=== PATIENT | female | born 1950 | race Caucasian/White ===

== ENCOUNTER → 2023-07-03 12:41 | Outpatient (REF) | payer OTHER, SELFPAY ==
[2023-07-03 16:29] LABS: % Basophils 0.6 % (0-2); % Eosinophils 5.4 % (0-6); % Immature Granulocytes 0.2 % (0-0.5); % Lymphocytes 26.7 % (20.5-51.1); % Neutrophils 57.1 % (42.2-75.2); Absolute Eosinophils 0.3 10^3/uL (0-0.7); Absolute Lymphocytes 1.4 10^3/uL (1.2-3.4); Absolute Monocytes 0.5 10^3/uL (0.1-0.6); Hematocrit 28.9 % (37.0-47.0); Hemoglobin 9.3 g/dL (12.0-16.0); Mean Corp Hgb Conc. 32.2 g/dL (33.0-37.0); Mean Corpuscular Hgb 29.9 pg (27.0-31.0); Mean Corpuscular Volume 92.9 fL (81.0-99.0); Mean Platelet Volume 12.3 fL (7.4-10.4); Nucleated Red Blood Cells % 0 %; Platelet Count 147 10^3/uL (130-400); Red Blood Cell Count 3.11 10^6/uL (4.20-5.40); Red Cell Dist. Width 14.3 % (11.5-14.5); White Blood Cell Count 5.2 10^3/uL (4.8-10.8)
[2023-07-03 16:39] LABS: ALT (SGPT) 56 U/L (0-35); AST (SGOT) 80 U/L (14-36); Albumin 2.9 g/dl (3.5-5.0); Alkaline Phosphatase 156 U/L (38-126); Blood Urea Nitrogen 10 mg/dl (7-17); Calcium 7.9 mg/dl (8.4-10.2); Carbon Dioxide 28 mmol/L (22-30); Chloride 100 mmol/L (98-107); Glomerular Filtration Rate 40.4; Glucose 73 mg/dl (70-99); Potassium 2.8 mmol/L (3.5-5.1); Sodium 138 mmol/L (135-145); Total Bilirubin 0.5 mg/dl (0.2-1.3); Total Protein 5.6 g/dl (6.3-8.2)
== END ==
LOC: OLABP 12:41
PROVIDERS: FAMILY PHYSICIAN Family Medicine
DX: E11.9 Type 2 diabetes mellitus without complications (principal); T84.54XD Infection and inflammatory reaction due to internal left knee prosthesis, subsequent encounter; M79.661 Pain in right lower leg
CPT/HCPCS: 80053; 85025

== ENCOUNTER 2023-10-01 16:21 | Inpatient (IN) | payer OTHER, SELFPAY ==
[2023-10-01] VITALS (17 sets, daily range): BP systolic 75–102; BP diastolic 36–74; BMI 30.1; BMI 30.6
[2023-10-01] MEDS: NSS 500 IV (13:12)
[2023-10-01 13:23] LABS: % Basophils 0.4 % (0-2); % Eosinophils 5.7 % (0-6); % Immature Granulocytes 0.5 % (0-0.5); % Lymphocytes 13.4 % (20.5-51.1); % Monocytes 6.1 % (1.7-9.3); % Neutrophils 73.9 % (42.2-75.2); Absolute Eosinophils 0.6 10^3/uL (0-0.7); Absolute Immature Granulocytes 0.1 10^3/uL (0-0.05); Absolute Lymphocytes 1.5 10^3/uL (1.2-3.4); Absolute Monocytes 0.7 10^3/uL (0.1-0.6); Hematocrit 30.1 % (37.0-47.0); Hemoglobin 10.1 g/dL (12.0-16.0); Mean Corp Hgb Conc. 33.6 g/dL (33.0-37.0); Mean Corpuscular Volume 83.4 fL (81.0-99.0); Mean Platelet Volume 11.9 fL (7.4-10.4); Nucleated Red Blood Cells % 0 %; Platelet Count 185 10^3/uL (130-400); Red Blood Cell Count 3.61 10^6/uL (4.20-5.40); Red Cell Dist. Width 16.3 % (11.5-14.5); White Blood Cell Count 10.8 10^3/uL (4.8-10.8)
--- NOTE | 2023-10-01 13:34 | ED.GENMED ---
History of Present Illness
General
Chief Complaint: Blood Pressure Problem
Time Seen by Provider: 10/01/23 12:39
Travel History
Have you had any contact with someone who has COVID-19?: No
Do you have any symptoms of coronavirus? Fever > 100 degrees, chills, cough, shortness of breath, sore throat, loss of taste or smell, muscle aches, or headache?: No
History of Present Illness
History of Present Illness:
73-year-old female with history of COPD, congestive heart failure, hyperlipidemia, and stage III chronic kidney disease presents to the emergency department for evaluation of a near syncopal event that occurred while on the toilet today. She was
too weak to get up and her had to support her until EMS arrived. On arrival she was noted to be mildly tachycardic and hypotensive but is alert to her baseline and denies complaints. She did take her scheduled midodrine today. She denies
any chest pain or shortness of breath, denies any fevers or chills. Recently admitted to the hospital for MRSA bacteremia due to UTI, completed a course of vancomycin while inpatient and has been taking levofloxacin since that time
Past History
Past History
ED Past Medical History: CHF, COPD, GERD, HTN, Hypercholesterolemia, NIDDM, Hypothyroidism, Psychiatric (Anxiety, ), Other (dvt PE, Cellulitis, Migraines, PNA, Ovarian cyst Uterine cyst, Cellulitis, Sarcoidosis, Polymyalgia rheumatics. ) and Other
(The patient has a benign cyst and the uterus); Negative Asthma
ED Past Surgical History: None, Cholecystectomy, Orthopedic (Lumbar laminectomy 02/08/2018, Right ankle surgery, Right patella surgery, ) and Other (Cataracts, )
Social History
Tobacco: Former smoker
Alcohol: None
Personal:
Living: with family
Employment: Employed
Family History
Family History: Hypertension
Review of Systems
Review of Systems
Allergies reviewed?: Yes
All Other Systems: ROS reviewed and negative except as documented in HPI and ROS
Phy Exam
Physical Exam
Physical Exam:
GEN: Chronically ill-appearing, generally pale, no immediate distress
HEENT: Oral mucosa moist, no scleral icterus
Cardiac: Regular rate and rhythm, no murmurs
Lung: No respiratory distress, no tachypnea, lungs clear to auscultation bilaterally
MSK: Status post right knee replacement, incision site is clean dry with no dehiscence. Diffuse ecchymosis to the entire right lower extremity, likely on the basis of recent surgery. Dorsalis pedis pulses are 1+ bilaterally
Skin: Good color, no pallor or jaundice, no rashes
Neuro: AO x3, moves all extremities freely
Psych: Calm, cooperative
Course
Orders/Labs/Results
Orders:
Orders
10/01/23 12:15
Electrocardiogram (*1) Urgent
Reason for Study: Shortness of Breath
10/01/23 12:16
EKG- Treatment ONCE
10/01/23 13:10
0.9% Sodium Chloride 500 ml [Nss] 500 ml IV BOLUS
10/01/23 13:13
Complete Blood Count/With Diff Urgent
Comprehensive Metabolic Panel Urgent
10/01/23 13:45
Bladder Scan- Treatment ONCE
Comment: PVR
10/01/23 15:36
0.9% Sodium Chloride 1000 ml [Nss] 1,000 ml IV BOLUS
10/01/23 16:03
Admit/Transfer Patient As Directed
Co-Sign Provider:
Level of Care: Inpatient admission
Assign to:: Telemetry
Physician / Group: jimena alves
Diagnosis: dehydration
Reason for Telemetry: Other
Other Reason for Telemetry: hypotension
Date to Stop Telemetry: 10/03/23
Time to Stop Telemetry: 11:00
Reason for Hospitalization: dehydration
Expected length of stay greater than two midnights?: Yes
ELOS- Estimated Length of Stay in days: 3
I certify the patient meets the requirements for IP care: Yes
0.9% Sodium Chloride 1000 ml [Nss] 1,000 ml IV BOLUS
10/01/23 16:04
Code Status As Directed
Resuscitation Status: Full Code
Midodrine [ProAmatine] 5 mg PO NOW STA
10/01/23 16:25
Urinalysis Reflex To Culture Urgent
Date Specimen was Collected: 10/01/23
Time Specimen was Collected: 16:19
Urine Microscopic Reflex Cult Urgent
10/01/23 16:30
Blood Culture Q30M
ABILIO Source: Blood/Venous
Specimen Description:
10/01/23 17:00
Blood Culture Q30M
ABILIO Source: Blood/Venous
Specimen Description:
10/03/23 11:00
DC Protocol for Telemetry ONCE
Abnormal Lab Results
10/01/23
13:13
RBC 3.61 L 10^6/uL
(4.20-5.40)
Hgb 10.1 L g/dL
(12.0-16.0)
Hct 30.1 L %
(37.0-47.0)
RDW 16.3 H %
(11.5-14.5)
MPV 11.9 H fL
(7.4-10.4)
Abs Immat Gran (auto) 0.1 H 10^3/uL
(0-0.05)
Absolute Neuts (auto) 8.0 H 10^3/uL
(1.4-6.5)
Absolute Monos (auto) 0.7 H 10^3/uL
(0.1-0.6)
Lymphocytes % 13.4 L %
(20.5-51.1)
Sodium 131 L mmol/L
(135-145)
Carbon Dioxide 15 L mmol/L
(22-30)
BUN 18 H mg/dl
(7-17)
Creatinine 2.1 H mg/dL
(0.6-1.0)
AST 68 H U/L
(14-36)
Alkaline Phosphatase 160 H U/L
(38-126)
Total Protein 4.7 L g/dl
(6.3-8.2)
Albumin 2.3 L g/dl
(3.5-5.0)
10/01/23 13:13
10/01/23 13:13
Vital Signs
Initial and Last Documented VS:
Initial Vital Signs
Temp Pulse Resp BP Pulse Ox
97.9 F 103 20 81/54 98
10/01/23 12:19 10/01/23 12:19 10/01/23 12:19 10/01/23 12:19 10/01/23 12:19
Last Documented Vital Signs
Temp Pulse Resp BP Pulse Ox
97.9 F 91 22 88/56 98
10/01/23 12:19 10/01/23 14:45 10/01/23 14:45 10/01/23 16:21 10/01/23 14:45
MDM/Problems Addressed
MDM/Problems Addressed:
Patient is hypotensive on arrival. She did endorse taking her midodrine today. Could be related to third spacing in the setting of hypoalbuminemia versus poor p.o. intake. She is afebrile with no leukocytosis and has a negative urinalysis, no
indication for antibiotics at this point. Initially responded well to IV fluids however became persistently hypotensive, midodrine administered. Will admit to the hospitalist service due to acute kidney injury superimposed on chronic kidney disease
*Critical Care Note
Total Time (30-74mins, 75-104mins- exclusive of procedures): Not Applicable
ED Attending Note
-
Portions of this chart may have been created with voice recognition software.� Occasional wrong word or��sound alike� substitutions may have occurred due to the inherent limitations of voice recognition software.
Discharge Plan
Departure
Patient Disposition: Admit
Date of Disposition: 10/01/23
Time of Disposition: 15:22
Admit to: Med/Surg
Presentation/result/management discussed w/ accepting MD/DO: Hospitalist
Discharge Problem:
Acute kidney injury superimposed on CKD
Interventions
Interventions:
*Risk Screen - Suicide Last Done: 10/01/23 12:19
*General Assessment Last Done: 10/01/23 12:19
*Neglect/Abuse Screening Last Done: 10/01/23 12:19
ED- Cardiac Assessment Last Done: 10/01/23 12:47
ED- Neurological Assessment Last Done: 10/01/23 12:47
ED- Pulmonary Assessment Last Done: 10/01/23 12:47
[2023-10-01 13:36] LABS: ALT (SGPT) 16 U/L (0-35); AST (SGOT) 68 U/L (14-36); Albumin 2.3 g/dl (3.5-5.0); Alkaline Phosphatase 160 U/L (38-126); Blood Urea Nitrogen 18 mg/dl (7-17); Calcium 8.9 mg/dl (8.4-10.2); Carbon Dioxide 15 mmol/L (22-30); Chloride 102 mmol/L (98-107); Estimated Creatinine Clearance 21 ml/min; Glucose 75 mg/dl (70-99); Potassium 4.1 mmol/L (3.5-5.1); Sodium 131 mmol/L (135-145); Total Bilirubin 1.2 mg/dl (0.2-1.3); Total Protein 4.7 g/dl (6.3-8.2); eGFR 24.73
--- NOTE | 2023-10-01 15:29 | HPS.HSE ---
Addendum entered and electronically signed by Gurinder Francois MD 10/01/23 16:17:
73 y/o F who p/w CC near syncope.
80/49, 91, 22, 97.9 �F, 98% RA
NAD, awake and alert
RRR, normal S1/S2
CTAB
+BS, soft, NT, ND
CN2-12 intact
Proximal posterior left leg and distal posterior left thigh with mild erythema
WBC 10.8, Hb 10.1, plt 185
Na 131, HCO3- 15, BUN 18, Cr 2.1
BARRY, hypotension:
-1L NS given by ER, will give another 1L NS
-maintenance fluids
-cont midodrine
-trend Cr
Prior MRSA bacteremia:
-The patient does have a history of chronic hypertension but she also has a history of recent MRSA bacteremia. Her left lower extremity has an area that is mildly erythematous and borderline cellulitic. At this time I will place her on IV
vancomycin and check blood cultures.
Original Note:
Family Physician
-
Family Physician: Fercho Franco
Chief Complaint
-
near syncope
History of Present Illness
73-year-old female with history of COPD, congestive heart failure, hyperlipidemia, and stage III chronic kidney disease presents to the emergency department for evaluation of a near syncopal event that occurred while on the toilet today.� She was
too weak to get up and her had to support her until EMS arrived.� This morning she was noted hypotensive at home. Her gave her midodrine with no improvement in her blood pressure. She always has systolic BP in 100s but today it was
in the 80s. today she was sitting on the toilet, she felt dizzy, lightheaded and felt like she is going to fall. As per , stated poor appetite. noticed left lower extremities swollen than the right and also noted some redness
behind her left calf. Also complained of right lower extremities bruising throughout. Patient denied any pain in her lower extremities patient denied any headache. Stated lightheaded and dizziness for past 1 week. Denied chest pain or short of
breath. Denies abdominal pain, nausea, vomiting, diarrhea. Denied dysuria hematuria.
on arrival she was noted to be mildly tachycardic and hypotensive
Recently admitted to the hospital for MRSA bacteremia due to UTI, completed a course of vancomycin while inpatient and has been taking levofloxacin since that time.
Patient received fluids in ER. Admitting for further management
Medical History
Past Medical History
Past Medical History: Reports Other
Additional Past Medical History:
heumatoid arthritis, on chronic prednisone, spinal stenosis, CKD stage III, COPD, PMR, hypothyroidism, generalized weakness
Past Surgical History: Reports Other (right knee surgery)
Social History
Tobacco: Non-smoker
Alcohol: None
Drug: None
Personal:
Living: With Family
Family History
Family History: Not pertinent
Allergies / Home Medications
Allergies reflects when Allergies were last updated in [facility].
Home Medications with original date entered in [facility]
Allergy/Medication List:
Allergies
Allergy/AdvReac Type Severity Reaction Status Date / Time
ampicillin [From Unasyn] Allergy AIN Verified 08/17/23 16:12
methotrexate Allergy no energy Verified 07/24/23 17:30
and lost
weight
pepper (genus Capsicum) Allergy LIKE FOOD Verified 08/19/23 21:23
POISONING/VOMITS/DIARRHEA
sulbactam [From Unasyn] Allergy AIN Verified 08/17/23 16:12
Home Medications
potassium chloride 20 mEq tablet,extended release(part/cryst) (Klor-Con M) 20 meq PO BID Supplement 11/01/15
levothyroxine 75 mcg tablet 75 mcg PO DAILY AT 0700 Thyroid 12/05/18
famotidine 20 mg tablet 20 mg PO BID Gastrointestinal Issue 10/25/20
ascorbic acid (vitamin C) 500 mg tablet (Vitamin C) 500 mg PO DAILY Supplement 09/04/21
cholecalciferol (vitamin D3) 50 mcg (2,000 unit) tablet 2,000 units PO DAILY Supplement 09/04/21
adalimumab 40 mg/0.4 mL subcutaneous pen kit (Humira(CF) Pen) 40 mg SC FR Rheumatoid arthritis 06/01/23
gabapentin 600 mg tablet 600 mg PO TID Neurological Condition 06/01/23
vitamin B complex 1 tab PO DAILY Supplement 06/01/23
oxycodone 5 mg tablet 5 mg PO Q4HPRN PRN moderate/severe pain #20 tabs 07/30/23
acetaminophen 325 mg tablet 650 mg PO Q4H PRN mild pain/fever 08/17/23
neomycin-bacitracn Zn-polymyx 3.5 mg-400 unit-5,000 unit/gram top oint (Triple Antibiotic) 1 applic topical DAILY Skin Issues 08/17/23
levofloxacin 750 mg tablet 750 mg PO Q48H Infected joint 08/18/23
midodrine 5 mg tablet 5 mg PO TID@0800,1300,1800 #90 tabs 08/28/23
mirtazapine 15 mg tablet 15 mg PO HS #30 tabs 08/28/23
prednisone 5 mg tablet 5 mg PO DAILY #30 tabs 08/28/23
Review of Systems
-
Constitutional: Reports No Symptoms
EENT: Reports No Symptoms
Respiratory: Reports No Symptoms
Cardiac: Reports No Symptoms
Abdomen/GI: Reports No Symptoms
: Reports No Symptoms
Musculoskeletal: Reports No Symptoms
Skin: Reports Other (left le red, swollen, right LE with bruising)
Neurological: Reports Dizzy and Weakness
Endocrine: Reports No Symptoms
Hematologic/Lymphatic: Reports No Symptoms
Psych: Reports No Symptoms
Physical Exam
Vital Signs
Vital Signs
Temp Pulse Resp BP Pulse Ox
97.9 F 91 22 80/49 98
10/01/23 12:19 10/01/23 14:45 10/01/23 14:45 10/01/23 14:32 10/01/23 14:45
Physical Exam
General: Well Developed, Well Nourished and No Apparent Distress
HEENT: NormoCephalic, Moist mucous membranes and Atraumatic
Respiratory: Clear
Cardiac: S1/S2 and Regular Rhythm; No Murmur or Rub
GI: Soft, Non Tender, Non Distended and Normal Bowel Sounds; No Organomegaly
Rectal: Deferred by Provider
Musculoskeletal: No Clubbing, No Cyanosis and Other (right LE edema, left LE with bruising)
Skin: No Rash
Neuro: AO x 3 and Nonfocal/grossly intact
Psych: Calm
Laboratory Results
-
10/01/23 13:13
10/01/23 13:13
Laboratory Results
Total Bilirubin 1.2 mg/dl (0.2-1.3) 10/01/23 13:13
AST 68 U/L (14-36) H 10/01/23 13:13
ALT 16 U/L (0-35) 10/01/23 13:13
Alkaline Phosphatase 160 U/L (38-126) H 10/01/23 13:13
Data Reviewed
-
Lab Data: Labs Reviewed by me
Impression/Plan
-
# Hyponatremia/acute kidney injury on CKD 3a metabolic acidosis likely dehydration
-Sodium 131, creatinine 2.1,co2 15
-normal saline continued
-nephrology consulted
#hypotension likely dehydration
-normal saline continued
-monitor BP/HR
-midodrine continued
#hxt of MRS/UTI/bacteremia
#immunocompromised from Humira/chronic steroids
- TTE and SILVERIO clear
- Patient have L4-L5 fixation device placed hardware in place.� In May also have undergone right patellar ORIF with prosthesis removal and multiple I&D.
- completed Vancomycin course during hospitalization
-at present on levaquin
# Anemia of chronic disease
-Hemoglobin stable at 10.1
-No active bleeding
-Continue to monitor
# History of small right knee effusion
#History of right patellar hardware infection s/p removal
#History of rheumatoid arthritis
- Not painful/tender on exam
#Chronic transaminitis
- ALT/AST minimally elevated, which is chronic in nature
- Earlier in the month at abdominal ultrasound which was normal
#Generalized weakness
- Patient had mechanical fall 2 months back
- Currently requiring assistance/walker to ambulate
- PT/OT
#Right shoulder rotator cuff arthropathy
#PMR on chronic steroids
#Hypothyroidism
-Levothyroxine continued
# GERD
-PPI continued
# History of lower GI bleed from stercoral colitis
#DVT ppx: SC heparin
#Code: Full
[2023-10-01] MEDS: NSS 1000 IV ×2 (16:01→19:59)
[2023-10-01] MEDS: ProAmatine 5 MG PO (16:21)
[2023-10-01 16:42] LABS: Urine Albumin Trace (Neg - Trace); Urine Bilirubin 1+ (Negative); Urine Character Clear (Clear); Urine Color Yellow; Urine Glucose Negative (Negative); Urine Ketone 1+ (Negative); Urine Leukocyte Trace (Negative); Urine Nitrite Negative (Negative); Urine Occult Blood Negative (Negative); Urine Urobilinogen Negative (Neg - 1+)
[2023-10-01 17:11] LABS: Urine Bacteria Few (Negative); Urine Red Blood Cell 0-2 /HPF (0-2); Urine White Cell 0-2 /HPF (0-5)
--- NOTE | 2023-10-01 20:10 | PHA.VAN.IN ---
Assessment
- Assessment
Renal Function: Appears elevated from baseline (08/28/23 BASELINE SCR: 1.0)
Concomitant Antimicrobials: LEVAQUIN
- Previous Dosing Experience
Previous Regimen: 750MG IV Q72H
Date of Regimen: 08/25/23
Provided Trough of: UNKNOWN
Provided AUC of: UNKNOWN
Patient's SCR is: Elevated compared to previous dosing experience (08/25/23 SCR = 1.1)
Patient's weight is: Decreased compared to previous dosing experience (08/25/23 WT = 72.8 KG)
Plan
- Plan
Initial / Loading Dose: 1500MG
Maintenance Regimen: DOSING BY RANDOM LEVEL
Monitoring: RANDOM VANCOMYCIN LEVEL 10/02/23 AM
Pharmacokinetics Vancomycin I
- -
Patient Age: 73
Patient Sex: Female
Vancomycin Day #: 1
Indication: Bacteremia
Requesting Provider: FRANCISCO
Height / Weight:
Height 5 ft
Actual Weight 70 kg
Pertinent Past Medical History: RECENT MRSA BACTEREMIA
- Vital Signs / Lab Results
Temp Pulse Resp BP Pulse Ox
97.4 F 95 16 80/55 99
10/01/23 19:55 10/01/23 19:55 10/01/23 19:55 10/01/23 19:55 10/01/23 19:55
Lab Results - Hematology
10/01/23
13:13
WBC 10.8
Lab Results - Chemistry
10/01/23
13:13
BUN 18 H
Creatinine 2.1 H
Estimated Creat Clear 21
Albumin 2.3 L
Lab Results - Urine
10/01/23
16:25
Urine Nitrite (Reflex) Negative
Leukocyte Esterase Rfl Trace A
Urine WBC (Reflex) 0-2
Urine Bacteria (Reflex) Few A
[2023-10-01] MEDS: VANCOCIN 300 MG IV (20:16)
[2023-10-01] MEDS: VANCOCIN 300 ML IV (20:16)
[2023-10-01] MEDS: HEPARIN 5000 UNITS SC (21:37)
[2023-10-01] MEDS: PEPCID 20 MG PO (21:38)
[2023-10-01] MEDS: NEURONTIN 300 MG PO (21:38)
[2023-10-01] MEDS: LEVAQUIN 750 MG PO (21:38)
[2023-10-02] VITALS (7 sets, daily range): BP systolic 83–116; BP diastolic 51–64; PULSE 95; O2SAT 100; BMI 30.6
--- NOTE | 2023-10-02 02:53 | PTCARENOTE ---
Pt admitted from ED this shift. Pt alert and oriented. Denies pain. BP 88/52, MAILING MANAGER aware. MIVF started and vancomycin administered upon arrival to unit. Pt placed on telemetry box #4. Pt oriented to room. Call quarles within reach.
[2023-10-02] MEDS: NSS 1000 IV ×3 (05:15→22:10)
[2023-10-02] MEDS: SYNTHROID 75 MCG PO (06:14)
[2023-10-02 07:18] LABS: Hematocrit 24.4 % (37.0-47.0); Hemoglobin 8.2 g/dL (12.0-16.0); Mean Corp Hgb Conc. 33.6 g/dL (33.0-37.0); Mean Corpuscular Hgb 27.9 pg (27.0-31.0); Red Blood Cell Count 2.94 10^6/uL (4.20-5.40); Red Cell Dist. Width 16.2 % (11.5-14.5); White Blood Cell Count 5.9 10^3/uL (4.8-10.8)
[2023-10-02 07:46] LABS: ALT (SGPT) 10 U/L (0-35); AST (SGOT) 38 U/L (14-36); Albumin 1.6 g/dl (3.5-5.0); Alkaline Phosphatase 108 U/L (38-126); Blood Urea Nitrogen 15 mg/dl (7-17); Calcium 7.9 mg/dl (8.4-10.2); Carbon Dioxide 16 mmol/L (22-30); Chloride 108 mmol/L (98-107); Direct Bilirubin 0.6 mg/dl (0.0-0.4); Estimated Creatinine Clearance 28 ml/min; Glucose 67 mg/dl (70-99); Potassium 3.5 mmol/L (3.5-5.1); Sodium 133 mmol/L (135-145); Total Bilirubin 0.8 mg/dl (0.2-1.3); Total Protein 3.7 g/dl (6.3-8.2); eGFR 34.27
[2023-10-02 07:49] LABS: Mean Platelet Volume 12.1 fL (7.4-10.4); Platelet Count 124 10^3/uL (130-400)
--- NOTE | 2023-10-02 08:22 | PHA.VAN.FU ---
Vancomycin Assessment / Plan
- Assessment
Renal Function: SCR Decreasing (2.1->1.6)
WBC's are: WNL
In the past 24 hrs, patient has been: Afebrile
Concomitant Antimicrobials: levofloxacin
- Assessment - Therapeutic Drug Monitoring
Random Level: 17 ( ~10.5 hours after 1500 mg dose )
- Dosing Plan
Continue: dose by random level as SCR still elevated
Dosing by Level: Re-dose today (500 mg x 1 dose to be given later this afternoon)
Dosing Comments: giving a small extra dose to ensure that level does not fall too much given
hx of recent MRSA bacteremia
- Monitoring Plan
Random Level: random level AM 10/03/23
- Follow Up
Pharmacy will continue to follow.
Vancomycin Follow UP
- -
Patient Age: 73
Patient Sex: Female
Vancomycin Day #: 2
Indication: Bacteremia
Requesting Provider: FRANCISCO
Height / Weight:
Height 5 ft
Actual Weight 71.169 kg
Pertinent Past Medical History: RECENT MRSA BACTEREMIA
- Vital Signs / Lab Results
Temp Pulse Resp BP Pulse Ox
97.6 F 87 12 83/52 98
10/02/23 04:04 10/02/23 04:04 10/02/23 04:04 10/02/23 04:04 10/02/23 04:04
Lab Results - Hematology
10/01/23 10/02/23
13:13 06:46
WBC 10.8 5.9
Lab Results - Chemistry
10/01/23 10/02/23
13:13 06:46
BUN 18 H 15
Creatinine 2.1 H 1.6 H
Estimated Creat Clear 21 28
Albumin 2.3 L 1.6 L
Lab Results - Urine
10/01/23
16:25
Urine Nitrite (Reflex) Negative
Leukocyte Esterase Rfl Trace A
Therapeutic Drug Monitoring
Random Vancomycin 17.0 ug/ml 10/02/23 06:46
[2023-10-02] MEDS: ProAmatine 5 MG PO (08:30)
--- NOTE | 2023-10-02 08:43 | W.PN.HOSP.TC ---
Today's Communication/Plan
-
see bold
Assessment / Plan
Assessment / Plan
Gen: NAD, Awake and alert, appears older than stated age
Eyes: EOMI, PERRLA, no scleral icterus.
Neck: supple.
CV: tachy, reg rhythm, +S1/S2, no m/r/g.
Resp: CTAB, no rales, wheezes, or rhonchi.
Abd: +BS, soft, NT, ND
Skin: No rashes.
Neuro: CN 2-12 intact, non-focal.
Psych: Normal mood and affect.
BARRY, hypotension:
-s/p 2L NS on admission
-cont NS @ 125cc/hr
-increase midodrine to 10mg PO TID
-Cr improving
-Now with nonanion gap metabolic acidosis, follow HCO3-
-hyponatremia, improving
Prior MRSA bacteremia:
-immunocompromised from Humira/chronic steroids
-The patient does have a history of chronic hypertension but she also has a history of recent MRSA bacteremia.� Her left lower extremity has an area that is mildly erythematous and borderline cellulitic.�
-cont IV vancomycin and follow blood cultures.
Dysphagia:
-speech eval
Other problems:
Recent UTI: cont Levaquin
Anemia of chronic disease: Trend Hb (drop is dilutional)
Chronic transaminitis: ALT/AST minimally elevated, chronic. Earlier in the month abdominal ultrasound was normal
RA
PMR
Hypothyroidism: cont Levoxyl
GERD: cont PPI
h/o lower GI bleed from stercoral colitis
FULL/heparin
Anticipated Discharge: 24 - 48 hours
Subjective/Interval History
-
Date of Service: October 02, 2023
Objective Data
-
Labs:
Laboratory Results
10/02/23
06:46
WBC 5.9
Hgb 8.2 L
Hct 24.4 L
Plt Count 124 L D
Sodium 133 L
Potassium 3.5
Chloride 108 H
Carbon Dioxide 16 L
BUN 15
Creatinine 1.6 H
Glucose 67 L
Calcium 7.9 L
Total Bilirubin 0.8
AST 38 H
ALT 10
Alkaline Phosphatase 108
Vital Signs:
Vital Signs
Temp Pulse Resp BP Pulse Ox
97.6 F 87 12 83/52 98
10/02/23 04:04 10/02/23 04:04 10/02/23 04:04 10/02/23 04:04 10/02/23 04:04
I&O
10/01/23 10/02/23 10/03/23
06:59 06:59 06:59
Intake Total 970 / 970
Balance 970 / 970
[2023-10-02] MEDS: CYMBALTA DELAYED RELEASE 30 MG PO (09:06)
[2023-10-02] MEDS: NEURONTIN 300 MG PO ×2 (09:06→20:11)
[2023-10-02] MEDS: HEPARIN 5000 UNITS SC ×2 (09:08→20:11)
[2023-10-02] MEDS: DESENEX/MITRAZOL/ZEASORB 1 APPLIC TOPICAL ×2 (09:11→20:12)
--- NOTE | 2023-10-02 12:17 | PTOTSP ---
SPEECH THERAPY SWALLOW EVALUATION:
Clinical signs of oropharyngeal dysphagia, likely chronic in patient with multiple pre-disposing dysphagia risk factors (CHF, COPD, GERD) though unclear etiology. Patient and RN reporting difficulty with solids at this time. Recommend
Videofluoroscopic Swallowing Study to further assess swallow physiology. Recommend IDDSI Level 4 Puree diet and thin liquids until VSE. Recommend medications crushed in puree (which patient verbally refused); medications whole in puree would be the
next-safest option. Aspiration precautions including: upright positioning, small single sips/bites; alternate textures. Speech therapy to follow, assess diet tolerance and modify as appropriate, provide education regarding aspiration
risks/precautions and recommendations, and provide further recommendations following VSE.
RECOMMEND:
1) Videofluoroscopic Swallowing Study
2) IDDSI Level 4 Puree diet and thin liquids
3) Recommend medications crushed in puree (which patient verbally refused); medications whole in puree would be the next-safest option
4) Aspiration precautions including: upright positioning, small single sips/bites; alternate textures.
5) Speech therapy to follow, assess diet tolerance and modify as appropriate, provide education regarding aspiration risks/precautions and recommendations, and provide further recommendations following VSE
[2023-10-02] MEDS: VANCOCIN HCL 500 MG 100 IV (13:22)
[2023-10-02] MEDS: ProAmatine 10 MG PO ×2 (13:22→17:15)
--- NOTE | 2023-10-02 13:29 | CM ---
Patient seen at bedside. Patient stated that she lives with her and friend in a 2 story home with 1st floor set up. Patient has a hospital bed and walker at home. patient stated she was current with [facility] and would like to restart with them
when discharged. Patient stated that she is being followed by [facility] nurse also. CM will continue to follow for discharge planning needs.
Plan; home with MANFR[facility] Tolentino and family supports.
[2023-10-03 03:45] VITALS: BP 107/59
[2023-10-03] MEDS: SYNTHROID 75 MCG PO (06:10)
[2023-10-03] MEDS: NSS 1000 IV (06:10)
[2023-10-03 06:27] LABS: Hematocrit 22.7 % (37.0-47.0); Hemoglobin 7.9 g/dL (12.0-16.0); Mean Corp Hgb Conc. 34.8 g/dL (33.0-37.0); Mean Corpuscular Hgb 28.7 pg (27.0-31.0); Mean Corpuscular Volume 82.5 fL (81.0-99.0); Mean Platelet Volume 12.2 fL (7.4-10.4); Platelet Count 119 10^3/uL (130-400); Red Blood Cell Count 2.75 10^6/uL (4.20-5.40); Red Cell Dist. Width 16.4 % (11.5-14.5); White Blood Cell Count 5.5 10^3/uL (4.8-10.8)
[2023-10-03 06:30] LABS: Vancomycin Random 16.5 ug/ml
[2023-10-03 06:43] LABS: Blood Urea Nitrogen 13 mg/dl (7-17); Calcium 7.3 mg/dl (8.4-10.2); Carbon Dioxide 14 mmol/L (22-30); Chloride 111 mmol/L (98-107); Estimated Creatinine Clearance 38 ml/min; Glucose 61 mg/dl (70-99); Potassium 3.2 mmol/L (3.5-5.1); Sodium 134 mmol/L (135-145); eGFR 48.39
--- NOTE | 2023-10-03 07:38 | W.PN.HOSP.TC ---
Today's Communication/Plan
-
see bold
Assessment / Plan
Assessment / Plan
Gen: NAD, Awake and alert, appears older than stated age
Eyes: EOMI, PERRLA, no scleral icterus.
Neck: supple.
CV: RRR, +S1/S2, no m/r/g.
Resp: CTAB anteriorly, no rales, wheezes, or rhonchi.
Abd: remains +BS, soft, NT, ND
Skin: Minimal erythema without induration on the distal posterior left thigh and proximal posterior left leg
Neuro: CN 2-12 intact, non-focal.
Psych: Normal mood and affect.
BARRY, hypotension:
-s/p 2L NS on admission, then NS @ 125cc/hr
-midodrine increased to 10mg PO TID
-Cr improving
-start NaHCO3 infusion for nonanion gap metabolic acidosis
-hyponatremia, improving
Prior MRSA bacteremia:
-immunocompromised from Humira/chronic steroids
-The patient does have a history of chronic hypotension but she also has a history of recent MRSA bacteremia.� Her left lower extremity has an area that is mildly erythematous and borderline cellulitic.�
-cont IV vancomycin for now. If BCxs NG at 48 hours stop Vanco.
Dysphagia:
-IDDSI 4 for now, VSE tomorrow
Other problems:
Recent UTI: cont Levaquin
Anemia of chronic disease: Trend Hb (drop is dilutional)
Chronic transaminitis: AST minimally elevated, chronic. Earlier in the month abdominal ultrasound was normal
RA
PMR
Hypothyroidism: cont Levoxyl
GERD: cont PPI
h/o lower GI bleed from stercoral colitis
FULL/heparin
Anticipated Discharge: 24 - 48 hours
Subjective/Interval History
-
Date of Service: October 03, 2023
Denies chest pain or shortness of breath. No new complaints.
Objective Data
-
Labs:
Laboratory Results
10/03/23
05:37
WBC 5.5
Hgb 7.9 L
Hct 22.7 L
Plt Count 119 L
Sodium 134 L
Potassium 3.2 L
Chloride 111 H
Carbon Dioxide 14 L*
BUN 13
Creatinine 1.2 H
Glucose 61 L
Calcium 7.3 L
Vital Signs:
Vital Signs
Temp Pulse Resp BP Pulse Ox
97.1 F 80 16 107/59 98
10/03/23 03:45 10/03/23 03:45 10/03/23 03:45 10/03/23 03:45 10/03/23 03:45
I&O
10/02/23 10/03/23 10/04/23
06:59 06:59 06:59
Intake Total 970 / 970 3580 / 3580
Balance 970 / 970 3580 / 3580
[2023-10-03 07:50] VITALS: BP 126/61
--- NOTE | 2023-10-03 08:29 | PHA.VAN.FU ---
Vancomycin Assessment / Plan
- Assessment
Renal Function: SCR Decreasing (2.1->1.6->1.2)
WBC's are: WNL
In the past 24 hrs, patient has been: Afebrile
Concomitant Antimicrobials: levaquin
- Assessment - Therapeutic Drug Monitoring
Random Level: 16.5 (after 1500 mg (10/01 20:16 and 500 mg 10/02 13:22)
- Dosing Plan
Continue: dose by level for now
Dosing by Level: Re-dose today (500 mg x 1 dose)
provider plan is to stop vanc if blood cultures are neg X48h
- Monitoring Plan
Random Level: ordered for 0600 10/04
- Follow Up
Pharmacy will continue to follow.
Vancomycin Follow UP
- -
Patient Age: 73
Patient Sex: Female
Vancomycin Day #: 3
Indication: Bacteremia
Requesting Provider: FRANCISCO
Height / Weight:
Height 5 ft
Actual Weight 71.169 kg
Pertinent Past Medical History: RECENT MRSA BACTEREMIA
- Vital Signs / Lab Results
Temp Pulse Resp BP Pulse Ox
97.2 F 85 16 126/61 100
10/03/23 07:50 10/03/23 07:50 10/03/23 07:50 10/03/23 07:50 10/03/23 07:50
Lab Results - Hematology
10/01/23 10/02/23 10/03/23
13:13 06:46 05:37
WBC 10.8 5.9 5.5
Lab Results - Chemistry
10/01/23 10/02/23 10/03/23
13:13 06:46 05:37
BUN 18 H 15 13
Creatinine 2.1 H 1.6 H 1.2 H
Estimated Creat Clear 21 28 38
Albumin 2.3 L 1.6 L
Microbiology Results
10/01/23 20:45 Blood Culture - Preliminary
Blood/Venous No Growth in 24 hours- Final report to follow
10/01/23 19:46 Blood Culture - Preliminary
Blood/Venous No Growth in 24 hours- Final report to follow
Therapeutic Drug Monitoring
Random Vancomycin 16.5 ug/ml 10/03/23 05:37
[2023-10-03] MEDS: ProAmatine 10 MG PO ×3 (09:17→18:04)
[2023-10-03] MEDS: HEPARIN 5000 UNITS SC ×2 (09:18→21:14)
[2023-10-03] MEDS: CYMBALTA DELAYED RELEASE 30 MG PO (09:18)
[2023-10-03] MEDS: NEURONTIN 300 MG PO ×2 (09:18→21:14)
[2023-10-03] MEDS: SODIUM BICARBONATE 1075 MEQ IV ×2 (09:22)
[2023-10-03] MEDS: DESENEX/MITRAZOL/ZEASORB 1 APPLIC TOPICAL ×2 (09:23→21:13)
[2023-10-03 11:41] VITALS: BP 101/54
[2023-10-03] MEDS: VANCOCIN HCL 500 MG 100 IV (12:28)
[2023-10-03 15:40] VITALS: BP 96/55
[2023-10-03 19:35] VITALS: BP 107/69
[2023-10-03] MEDS: LEVAQUIN 750 MG PO (21:14)
[2023-10-03] MEDS: PEPCID 20 MG PO (21:14)
[2023-10-03 23:30] VITALS: BP 109/57
[2023-10-04 03:16] VITALS: BP 102/40
[2023-10-04 05:48] LABS: Hemoglobin 7.9 g/dL (12.0-16.0); Mean Corp Hgb Conc. 34.3 g/dL (33.0-37.0); Mean Corpuscular Hgb 28.3 pg (27.0-31.0); Mean Corpuscular Volume 82.4 fL (81.0-99.0); Mean Platelet Volume 12.3 fL (7.4-10.4); Platelet Count 105 10^3/uL (130-400); Red Blood Cell Count 2.79 10^6/uL (4.20-5.40); Red Cell Dist. Width 15.9 % (11.5-14.5)
[2023-10-04 06:00] VITALS: BMI 32.9
[2023-10-04 06:02] LABS: Vancomycin Random 17.9 ug/ml
[2023-10-04 06:10] LABS: Blood Urea Nitrogen 10 mg/dl (7-17); Carbon Dioxide 17 mmol/L (22-30); Chloride 111 mmol/L (98-107); Estimated Creatinine Clearance 38 ml/min; Glucose 64 mg/dl (70-99); Potassium 2.8 mmol/L (3.5-5.1); Sodium 133 mmol/L (135-145); eGFR 48.39
[2023-10-04] MEDS: SYNTHROID 75 MCG PO (06:37)
[2023-10-04 07:00] VITALS: BP 98/57
--- NOTE | 2023-10-04 07:36 | W.PN.HOSP.TC ---
Today's Communication/Plan
-
see bold
Assessment / Plan
Assessment / Plan
Gen: NAD, Awake and alert, appears older than stated age
Eyes: EOMI, PERRLA, no scleral icterus.
Neck: supple.
CV: remains RRR, +S1/S2, no m/r/g.
Resp: CTAB anteriorly, no rales, wheezes, or rhonchi.
Abd: continues to remain +BS, soft, NT, ND
Skin: Minimal erythema without induration on the distal posterior left thigh and proximal posterior left leg, improved from yesterday
Neuro: CN 2-12 intact, non-focal.
Psych: Normal mood and affect.
10/01/23 20:45 Blood/Venous Blood Culture - Preliminary
No Growth in 48 hours- Final report to follow
10/01/23 19:46 Blood/Venous Blood Culture - Preliminary
No Growth in 48 hours- Final report to follow
BARRY, hypotension:
-s/p 2L NS on admission, then NS @ 125cc/hr, then bicarb infusion
-midodrine increased to 10mg PO TID
-Cr improved
Non-AG metabolic acidosis:
-change IVFs to D5W with 150meq NaHCO3 as pt with mild hypoglycemia
Prior MRSA bacteremia:
-immunocompromised from Humira/chronic steroids
-The patient does have a history of chronic hypotension but she also has a history of recent MRSA bacteremia.� Her left lower extremity has an area that is mildly erythematous (was borderline cellulitic on admission, now improved).�
-Stop IV Vanco with NEG BCxs
Dysphagia:
-IDDSI 4 for now, VSE today
Other problems:
Hypokalemia: 80meq K today
Hypomagnesemia: 4g IV Mg today
Hyponatremia, mild
Recent UTI: cont Levaquin
Anemia of chronic disease: Trend Hb (drop is dilutional)
Chronic transaminitis: AST minimally elevated, chronic. Earlier in the month abdominal ultrasound was normal
RA
PMR
Hypothyroidism: cont Levoxyl
GERD: cont PPI
h/o lower GI bleed from stercoral colitis
FULL/heparin
Anticipated Discharge: 24 - 48 hours
Subjective/Interval History
-
Date of Service: October 04, 2023
No new complaints.
Objective Data
-
Labs:
Laboratory Results
10/04/23
05:27
WBC 5.0
Hgb 7.9 L
Hct 23.0 L
Plt Count 105 L
Sodium 133 L
Potassium 2.8 L
Chloride 111 H
Carbon Dioxide 17 L
BUN 10
Creatinine 1.2 H
Glucose 64 L
Calcium 7.0 L
Vital Signs:
Vital Signs
Temp Pulse Resp BP Pulse Ox
97.4 F 84 16 102/40 99
10/04/23 03:16 10/04/23 03:16 10/04/23 03:16 10/04/23 03:16 10/04/23 03:16
I&O
10/03/23 10/04/23 10/05/23
06:59 06:59 06:59
Intake Total 3580 / 3580 2380 / 2380
Balance 3580 / 3580 2380 / 2380
[2023-10-04] MEDS: ProAmatine 10 MG PO ×3 (08:09→17:33)
[2023-10-04] MEDS: NEURONTIN 300 MG PO ×2 (08:09→21:32)
[2023-10-04] MEDS: CYMBALTA DELAYED RELEASE 30 MG PO (08:09)
[2023-10-04] MEDS: KCL 40 MEQ PO (08:10)
[2023-10-04] MEDS: HEPARIN 5000 UNITS SC ×2 (08:10→21:30)
[2023-10-04] MEDS: DESENEX/MITRAZOL/ZEASORB 1 APPLIC TOPICAL ×2 (08:10→21:36)
[2023-10-04 08:11] LABS: Magnesium 1.2 mg/dl (1.6-2.3)
[2023-10-04] MEDS: SODIUM BICARBONATE 1150 MEQ IV (08:11)
[2023-10-04] MEDS: SODIUM BICARBONATE IV (08:22)
[2023-10-04] MEDS: KCL 270 MEQ IV (09:17)
[2023-10-04] MEDS: MAGNESIUM SULFATE 100 IV (09:32)
[2023-10-04 11:00] VITALS: BP 108/58
--- NOTE | 2023-10-04 14:42 | PTOTSP ---
Video Swallow Examination
Patient presents with mild oral stage and WFL pharyngeal stage of swallowing. Esophageal sweep revealed retention which did not clear with a liquid wash. Patient may be at an elevated risk for bottom up aspiration at this time due to this.
A modified diet was recommended as outlined below due to prolonged mastication, decreased chewing breakdown (likely related to missing dentition), decreased bolus cohesion, and retention in esophagus with solids. Patient declined diet
recommendations after education. Notified MD.
Recommend:
1. IDDSI Level 6 Soft and Bite Sized, IDDSI Level 0 Thin Liquids
2. Medications: whole and/or crushed in puree
3. Strategies: alternate solids and liquids, reflux precautions (upright for at least 30 minutes after PO intake)
4. Oral care 3-5x daily
5. GI consult to assess for esophageal dysphagia
6. Dysphagia tx at the acute care level for instruction in compensations and diet modifications.
--- NOTE | 2023-10-04 14:58 | CON.GI ---
Addendum entered and electronically signed by Kathryn Darden MD 10/04/23 16:27:
I saw and examined the patient.
The AIR TECHNICIAN or PA's note was reviewed and I agree with the note.
Comment: 73-year-old female with history of high cholesterol, CHF, COPD, MRSA, lower extremity weakness presenting with increasing weakness and limited mobility, GI consult was called in for some dysphagia with pills. As per patient, she denies any
trouble with solids or liquids and even pills usually is not a problem. Denies any abdominal pain, nausea or vomiting. No heartburn, regurgitation, sour taste, choking or coughing. Denies constipation, diarrhea, blood in the stool or black stool.
She does report losing 20 pounds in the last 6 months and she says she is not hungry and she is also intentionally trying to lose weight as it is easier on her legs. No NSAID use. Never had upper endoscopy or colonoscopy.
Reviewing labs, hemoglobin since 2016 has been between 10 and 11.5 but recently it did trend down, normocytic, no evidence of overt bleeding.
Denies any family history of colon cancer or polyps.
Video swallow exam during the hospital visit showing mild oral and pharyngeal dysphagia with esophageal retention, could be at risk for aspiration. Speech pathology recommendation was soft and bite-size foods with thin liquids with aspiration
precautions.
-Dysphagia noted by speech on video swallow exam but patient denies any trouble swallowing solids, liquids but only with some pills.
Reviewed with patient regarding upper endoscopy which the patient does not want to pursue.
Also reviewed regarding an esophagram with a barium tablet or an upper GI study, patient does not want to pursue that either saying she does not have any trouble swallowing.
Modified diet per speech for now.
-Anemia without any overt bleeding
Will check iron studies, B12, folate and celiac panel.
-Low albumin levels, agree with protein supplementation.
Monitor electrolytes and replete
Will follow for now
Original Note:
Consultation
-
Date/Time Consultation Requested: 10/04/23 1300
Date/Time Consultation Performed: 10/04/23 1500
Requesting Provider: Gurinder Francois MD
Performing Provider: GERMAN Cochran, Kathryn Darden MD
Reason for Consultation: dysphagia
Medical History
Chief Complaint / HPI
Chief Complaint: weakness
History of Present Illness:
Pt is a 73yo with multiple medical issues including COPD, CHF, hyperlipidemia, MRSA UTI, , fecal impaction with GI bleed in 05/2023, CKD with near syncopal event and hypotension with recent admission for bacteremia and UTI. Pt states she has been
getting progressively weaker and concerned with mobility. During admission she was noted with dysphagia and relates she had difficulty with taking pills. She went for VSE today with noted esophageal retention that did not clear with liquids and
asked to evaluate. She is also noted with a chronic anemia with baseline hbg 9-10 and now 7.9 possible dilutional. She also has albumin 1.6- 2.3 range during admission, hypokalemia, hyponatremia, thrombocytopenia.
She admits to only very rare episode of dysphagia about every 6 months. She was recommended modified diet but declined. She denies odynophagia, GERD, nausea, vomiting, abdominal pain, diarrhea, constipation, blood or black in stools. Denies hx
EGD or colonoscopy in past.
Past Medical History
Past Medical History: CHF, COPD, Hypercholesterolemia, Hypothyroidism, NIDDM, Renal Failure (CKD), Psychiatric (anxiety) and Other (fecal impaction with GI bleeding, DVT/PE, cellulitis, migraines, PNA, ovarian cyst, uterine cyst, sarcoidosis, PMR,
RA, patellar hardwear with infection and removal)
Social History
Tobacco: Former Smoker (quit many years ago)
Alcohol: None
Drug: None
Personal:
Living: Other (spouse and landlord)
Employment: Retired
Family History
Family History: Other (no family hx colon CA or polyps)
Allergies / Home Medications
Allergy/AdvReac Type Severity Reaction Status Date / Time
ampicillin [From Unasyn] Allergy AIN Verified 08/17/23 16:12
methotrexate Allergy no energy Verified 07/24/23 17:30
and lost
weight
pepper (genus Capsicum) Allergy LIKE FOOD Verified 08/19/23 21:23
POISONING/VOMITS/DIARRHEA
sulbactam [From Unasyn] Allergy AIN Verified 08/17/23 16:12
Medication Instructions Recorded
levothyroxine 75 mcg tablet 75 mcg PO DAILY@07 Thyroid 12/05/18
famotidine 20 mg tablet 20 mg PO DAILYPRN PRN indigestion 10/25/20
ascorbic acid (vitamin C) 500 mg 500 mg PO DAILY Supplement 09/04/21
tablet (Vitamin C)
gabapentin 600 mg tablet 600 mg PO BID Neurological 06/01/23
Condition
vitamin B complex 1 tab PO DAILY Supplement 06/01/23
levofloxacin 750 mg tablet 750 mg PO Q48H@1200 Infected joint 08/18/23
mirtazapine 15 mg tablet 15 mg PO HS #30 tabs 08/28/23
cholecalciferol (vitamin D3) 125 125 mcg PO DAILY Supplement 10/01/23
mcg (5,000 unit) tablet
duloxetine 30 mg capsule,delayed 30 mg PO DAILY Mental 10/01/23
release Health/Anxiety
midodrine 5 mg tablet 5 mg PO TID Blood Pressure 10/01/23
Review of Systems
-
Constitutional: Reports Weight Loss ( 20 lbs with some decrease appetite)
EENT: Reports No Symptoms
Respiratory: Reports No Symptoms
Cardiac: Reports No Symptoms
Abdomen/GI: Reports No Symptoms
: Reports No Symptoms
Skin: Reports No Symptoms
Neurological: Reports Weakness
Endocrine: Reports No Symptoms
Hematologic/Lymphatic: Reports No Symptoms
Vital Signs
Temp Pulse Resp BP Pulse Ox
98.1 F 93 18 108/58 97
10/04/23 11:00 10/04/23 12:25 10/04/23 11:00 10/04/23 12:25 10/04/23 11:00
Physical Exam
Exam
General: Well Developed, Well Nourished and No Apparent Distress
HEENT: Normocephalic, Anicteric and Moist Mucous Membranes
Respiratory: Clear
Cardiac: Regular Rhythm
GI: Soft, Non Tender and Non Distended
Genito-urinary: No Costovertebral Tender
Musculoskeletal: No Clubbing and No Cyanosis
Skin: Warm and Dry
Neuro: Awake, Alert and AO x 3
Psych: Calm
Results
WBC 5.0 10^3/uL (4.8-10.8) 10/04/23 05:27
Hgb 7.9 g/dL (12.0-16.0) L 10/04/23 05:27
Hct 23.0 % (37.0-47.0) L 10/04/23 05:27
MCV 82.4 fL (81.0-99.0) 10/04/23 05:27
Plt Count 105 10^3/uL (130-400) L 10/04/23 05:27
Absolute Neuts (auto) 8.0 10^3/uL (1.4-6.5) H 10/01/23 13:13
Sodium 133 mmol/L (135-145) L 10/04/23 05:27
Potassium 2.8 mmol/L (3.5-5.1) L 10/04/23 05:27
Chloride 111 mmol/L (98-107) H 10/04/23 05:27
Carbon Dioxide 17 mmol/L (22-30) L 10/04/23 05:27
BUN 10 mg/dl (7-17) 10/04/23 05:27
Creatinine 1.2 mg/dL (0.6-1.0) H 10/04/23 05:27
Calcium 7.0 mg/dl (8.4-10.2) L 10/04/23 05:27
Total Bilirubin 0.8 mg/dl (0.2-1.3) 10/02/23 06:46
AST 38 U/L (14-36) H 10/02/23 06:46
ALT 10 U/L (0-35) 10/02/23 06:46
Alkaline Phosphatase 108 U/L (38-126) 10/02/23 06:46
Diagnostic Image Results:
Prior GI Procedures:
EGD: none
Colonoscopy: none
Assessment / Plan
-
Pt is a 73yo with multiple medical issues including COPD, CHF, hyperlipidemia, MRSA UTI, , fecal impaction with GI bleed in 05/2023, CKD with near syncopal event and hypotension with recent admission for bacteremia and UTI. Pt states she has been
getting progressively weaker and concerned with mobility. During admission she was noted with dysphagia and relates she had difficulty with taking pills. She went for VSE today with noted esophageal retention that did not clear with liquids and
asked to evaluate. She is also noted with a chronic anemia with baseline hbg 9-10 and now 7.9 possible dilutional. She also has albumin 1.6- 2.3 range during admission, hypokalemia, hyponatremia, thrombocytopenia.
-abnormal VSE with esophageal retention and concern for bottoms up aspiration
-anemia
-BARRY
-acidosis on admission
-weakness with concern for near syncope on admission
-recent MRSA UTI with need for IV abx course
-fecal impaction with GI bleeding 05/2023
-hypoalbuminemia
-wt loss
-thrombocytopenia
-hyponatremia/hypokalemia
other medical problems:
-COPD
-CHF
-hyperlipidemia
PLAN:
pt currently denies issues with dysphagia only issues with difficulty with some pills during admission
I reviewed VSE with concern for bottom up aspiration but pt wishes to continue diet as tolerated and monitor symptoms
I offered UGI vs EGD she declined
her biggest complaint is weakness likely related to multiple issues, recent UTI, chronic anemia etc
for PT eval
add iron studies, B12, folate some acute drop may be dilutional and multifactoral with renal disease and chronic illness - I discussed anemia work up with no prior EGD/colon in past pt unsure she would want to proceed
trend hbg
add enlive BID with hypoalbuminemia
cont Pepcid
repeat electrolytes per hospitalist
-
-
-
Thank you for consultation and allowing me to participate in the patient's care. Please call the senior environmental scientist GI physician during the after hours with any questions or concerns.
[2023-10-04 15:00] VITALS: BP 105/71
--- NOTE | 2023-10-04 16:15 | CM ---
Chart reviewed - pt off unit
Pt known to Rajan
Following PT recs - HH vs SNF
CM following for d/c needs
Plan - tbd
[2023-10-04 16:23] LABS: Iron 98 ug/dl (37-170)
[2023-10-04 16:33] LABS: Percent Saturation 71 % (20-50); Total Iron Binding Capacity 138 ug/dl (265-497)
[2023-10-04 17:36] LABS: Folate 5.1 ng/ml (2.76-20); Vitamin B12 934 pg/ml (239-931)
[2023-10-04 19:48] VITALS: BP 119/73
[2023-10-04 23:24] VITALS: BP 112/56
[2023-10-05] VITALS (7 sets, daily range): BP systolic 97–128; BP diastolic 44–70; BMI 33.5
[2023-10-05] MEDS: SODIUM BICARBONATE 1150 MEQ IV (00:10)
[2023-10-05 06:23] LABS: Hematocrit 23.3 % (37.0-47.0); Hemoglobin 8.3 g/dL (12.0-16.0); Mean Corp Hgb Conc. 35.6 g/dL (33.0-37.0); Mean Corpuscular Hgb 28.4 pg (27.0-31.0); Mean Corpuscular Volume 79.8 fL (81.0-99.0); Platelet Count 110 10^3/uL (130-400); Red Blood Cell Count 2.92 10^6/uL (4.20-5.40); Red Cell Dist. Width 15.9 % (11.5-14.5)
[2023-10-05 06:36] LABS: Blood Urea Nitrogen 9 mg/dl (7-17); Carbon Dioxide 22 mmol/L (22-30); Chloride 108 mmol/L (98-107); Estimated Creatinine Clearance 48 ml/min; Glucose 95 mg/dl (70-99); Iron 95 ug/dl (37-170); Magnesium 2.2 mg/dl (1.6-2.3); Potassium 3.3 mmol/L (3.5-5.1); Sodium 133 mmol/L (135-145); eGFR > 60.00
[2023-10-05 06:41] LABS: IgA 323 mg/dl (70-400)
[2023-10-05 06:45] LABS: Percent Saturation 66 % (20-50); Total Iron Binding Capacity 143 ug/dl (265-497)
[2023-10-05] MEDS: SYNTHROID 75 MCG PO (06:54)
[2023-10-05 07:43] LABS: Folate 5.1 ng/ml (2.76-20); Vitamin B12 981 pg/ml (239-931)
[2023-10-05] MEDS: NEURONTIN 300 MG PO ×2 (09:10→20:24)
[2023-10-05] MEDS: ProAmatine 10 MG PO ×3 (09:11→18:07)
[2023-10-05] MEDS: DESENEX/MITRAZOL/ZEASORB 1 APPLIC TOPICAL ×2 (09:11→20:24)
[2023-10-05] MEDS: CYMBALTA DELAYED RELEASE 30 MG PO (09:11)
[2023-10-05] MEDS: HEPARIN 5000 UNITS SC ×2 (09:19→20:24)
--- NOTE | 2023-10-05 11:38 | W.PN.HOSP.TC ---
Today's Communication/Plan
-
Monitor vital signs and see plan
Monitor diet
GI following
PT/OT
Continue midodrine
Assessment / Plan
Assessment / Plan
Gen: NAD, Awake and alert, appears older than stated age
Eyes: EOMI, PERRLA, no scleral icterus.
Neck: supple.
CV: remains RRR, +S1/S2, no m/r/g.
Resp: CTAB anteriorly, no rales, wheezes, or rhonchi.
Abd: continues to remain +BS, soft, NT, ND
Skin: Minimal erythema without induration on the distal posterior left thigh and proximal posterior left leg
Neuro: CN 2-12 intact, non-focal.
Psych: Normal mood and affect.
10/01/23 20:45 Blood/Venous Blood Culture - Preliminary
No Growth in 48 hours- Final report to follow
10/01/23 19:46 Blood/Venous Blood Culture - Preliminary
No Growth in 48 hours- Final report to follow
BARRY, hypotension:
-s/p 2L NS on admission, then NS @ 125cc/hr, then bicarb infusion
-midodrine increased to 10mg PO TID
-Cr improved
Non-AG metabolic acidosis:
resolved
Prior MRSA bacteremia:
-immunocompromised from Humira/chronic steroids
-The patient does have a history of chronic hypotension but she also has a history of recent MRSA bacteremia.� Her left lower extremity has an area that is mildly erythematous (was borderline cellulitic on admission, now improved).�
-Stop IV Vanco with NEG BCxs
Hypokalemia
Replete
Dysphagia:
-VSE 10/05 showed dysphagia; now on soft and bite size
GI following; patient doesnt want EGD at this time
Other problems:
Hypomagnesemia: resolved
Hyponatremia, mild
Recent UTI: cont Levaquin
Anemia of chronic disease
Chronic transaminitis: AST minimally elevated, chronic. Earlier in the month abdominal ultrasound was normal
RA
PMR
Hypothyroidism: cont Levoxyl
GERD: cont PPI
h/o lower GI bleed from stercoral colitis
FULL/heparin
Anticipated Discharge: Within 24 hours
Subjective/Interval History
-
Date of Service: October 05, 2023
denies pain
Objective Data
-
Labs:
Laboratory Results
10/05/23
05:42
WBC 6.0
Hgb 8.3 L
Hct 23.3 L
Plt Count 110 L
Sodium 133 L
Potassium 3.3 L
Chloride 108 H
Carbon Dioxide 22
BUN 9
Creatinine 1.0
Glucose 95
Calcium 7.0 L
Vital Signs:
Vital Signs
Temp Pulse Resp BP Pulse Ox
97.4 F 94 16 98/51 100
10/05/23 07:00 10/05/23 09:11 10/05/23 07:00 10/05/23 09:11 10/05/23 07:00
I&O
10/04/23 10/05/23 10/06/23
06:59 06:59 06:59
Intake Total 2380 / 2380 1320 / 1320
Balance 2380 / 2380 1320 / 1320
[2023-10-05] MEDS: KCL ELIXIR 40 MEQ PO (12:23)
[2023-10-05 13:41] LABS: tTG IgA Antibody 12.6 EU/ml (0-19); tTG IgG Antibody 12.3 EU/ml (0-19)
--- NOTE | 2023-10-05 13:46 | W.PN.GI.CBS2 ---
Addendum entered and electronically signed by Waldemar Patiño MD 10/05/23 14:52:
I saw and examined the patient.
The PA's note was reviewed and I agree with the note.
Comment:
Pt refusing endo eval, will s/o, can follow as OP.
Original Note:
Today's Communication / Plan
-
reviewed VSE again with patient with bottom up aspiration. advised EGD vs Esophagram. She declines to proceed. Reviewed lesion can be missed but currently she denies issues and would like to hold off
also reviewed anemia and GI testing. She feels she had EGD about 5 years ago and again declines EGD/colon and again reviewed without proceeding may miss lesion, PUD, ectasia etc.
cont diet as tolerated
iron studies, b12, folate normal range hbg slight improvement today
still with c/o weakness-- advised to review with case management for rehab options
cont enlive BID with hypoalbuminemia
cont Pepcid
repeat electrolytes per hospitalist
add miralax PRN last stool record 10/03 but pt states 10/04
as patient declining work up left GI contact info on discharge if she would like to proceed outpatient
all questions answered
will sign off call with questions
Assessment / Plan
-
Pt is a 73yo with multiple medical issues including COPD, CHF, hyperlipidemia, MRSA UTI, , fecal impaction with GI bleed in 05/2023, CKD with near syncopal event and hypotension with recent admission for bacteremia and UTI. Pt states she has been
getting progressively weaker and concerned with mobility. During admission she was noted with dysphagia and relates she had difficulty with taking pills. She went for VSE today with noted esophageal retention that did not clear with liquids and
asked to evaluate. She is also noted with a chronic anemia with baseline hbg 9-10 and now 7.9 possible dilutional. She also has albumin 1.6- 2.3 range during admission, hypokalemia, hyponatremia, thrombocytopenia.
-abnormal VSE with esophageal retention and concern for bottoms up aspiration
-anemia
-BARRY
-acidosis on admission
-weakness with concern for near syncope on admission
-recent MRSA UTI with need for IV abx course
-fecal impaction with GI bleeding 05/2023
-hypoalbuminemia
-wt loss
-thrombocytopenia
-hyponatremia/hypokalemia
other medical problems:
-COPD
-CHF
-hyperlipidemia
PLAN:
reviewed VSE again with patient with bottom up aspiration. advised EGD vs Esophagram. She declines to proceed. Reviewed lesion can be missed but currently she denies issues and would like to hold off
also reviewed anemia and GI testing. She feels she had EGD about 5 years ago and again declines EGD/colon and again reviewed without proceeding may miss lesion, PUD, ectasia etc.
cont diet as tolerated
iron studies, b12, folate normal range hbg slight improvement today
still with c/o weakness-- advised to review with case management for rehab options
cont enlive BID with hypoalbuminemia
cont Pepcid
repeat electrolytes per hospitalist
add miralax PRN last stool record 10/03 but pt states 10/04
as patient declining work up left GI contact info on discharge if she would like to proceed outpatient
all questions answered
will sign off call with questions
-
Subjective
Subjective
Date of Service: October 05, 2023
per pt stool 10/04, taking some meals and refusing others denies any difficulty with swallowing
Objective
Data Reviewed
Laboratory Data:
Laboratory Results
10/05/23 05:42
10/05/23 05:42
Laboratory Results
Magnesium 2.2 mg/dl (1.6-2.3) 10/05/23 05:42
Total Bilirubin 0.8 mg/dl (0.2-1.3) 10/02/23 06:46
AST 38 U/L (14-36) H 10/02/23 06:46
ALT 10 U/L (0-35) 10/02/23 06:46
Alkaline Phosphatase 108 U/L (38-126) 10/02/23 06:46
Vital Signs and I&O:
Vital Signs
Temp Pulse Resp BP Pulse Ox
98.1 F 106 17 97/44 100
10/05/23 11:00 10/05/23 12:23 10/05/23 11:00 10/05/23 12:23 10/05/23 11:00
I&O
10/04/23 10/05/23 10/06/23
06:59 06:59 06:59
Intake Total 2380 / 2380 1320 / 1320
Balance 2380 / 2380 1320 / 1320
Physical Exam
Physical Exam
HEENT: Anicteric and Moist mucous membranes
Cardiology: Normal Sinus Rhythm
Pulmonary: Clear
GI: Soft, Non Distended and Non Tender
Extremities: No Edema and Other (bruising and tender lower extremities)
Neuro: Non Focal
--- NOTE | 2023-10-05 16:35 | CM ---
Spoke with pt to obtain choices for snf
Pt hesitant about going to SNF. Left list of facilities with pt
CM will check back tomorrow for choices
[2023-10-05] MEDS: LEVAQUIN 750 MG PO (20:24)
[2023-10-05] MEDS: PEPCID 20 MG PO (20:24)
[2023-10-06 03:22] VITALS: BP 111/61
[2023-10-06 06:31] LABS: % Basophils 0.3 % (0-2); % Eosinophils 2.6 % (0-6); % Immature Granulocytes 0.8 % (0-0.5); % Lymphocytes 13.7 % (20.5-51.1); % Monocytes 11.3 % (1.7-9.3); % Neutrophils 71.3 % (42.2-75.2); Absolute Eosinophils 0.2 10^3/uL (0-0.7); Absolute Immature Granulocytes 0.1 10^3/uL (0-0.05); Absolute Lymphocytes 1.3 10^3/uL (1.2-3.4); Absolute Neutrophils 6.5 10^3/uL (1.4-6.5); Hematocrit 23.1 % (37.0-47.0); Hemoglobin 8.6 g/dL (12.0-16.0); Mean Corp Hgb Conc. 37.2 g/dL (33.0-37.0); Mean Corpuscular Hgb 29.7 pg (27.0-31.0); Mean Corpuscular Volume 79.7 fL (81.0-99.0); Mean Platelet Volume 11.5 fL (7.4-10.4); Nucleated Red Blood Cells % 0 %; Platelet Count 102 10^3/uL (130-400); Red Cell Dist. Width 16.2 % (11.5-14.5); White Blood Cell Count 9.1 10^3/uL (4.8-10.8)
[2023-10-06] MEDS: SYNTHROID 75 MCG PO (06:32)
[2023-10-06 07:31] LABS: Blood Urea Nitrogen 10 mg/dl (7-17); Calcium 7.6 mg/dl (8.4-10.2); Carbon Dioxide 21 mmol/L (22-30); Chloride 104 mmol/L (98-107); Estimated Creatinine Clearance 40 ml/min; Glucose 79 mg/dl (70-99); Potassium 3.2 mmol/L (3.5-5.1); Sodium 134 mmol/L (135-145); eGFR 48.39
[2023-10-06] MEDS: HEPARIN 5000 UNITS SC ×2 (07:55→19:30)
[2023-10-06] MEDS: ProAmatine 10 MG PO ×3 (07:56→17:07)
[2023-10-06] MEDS: CYMBALTA DELAYED RELEASE 30 MG PO (07:56)
[2023-10-06] MEDS: DESENEX/MITRAZOL/ZEASORB 1 APPLIC TOPICAL ×2 (07:56→19:31)
[2023-10-06] MEDS: NEURONTIN 300 MG PO ×2 (07:56→19:30)
[2023-10-06 08:07] VITALS: BP 105/67
[2023-10-06] MEDS: KCL ELIXIR 40 MEQ PO (08:51)
[2023-10-06 09:26] VITALS: BMI 33.8
[2023-10-06 11:45] VITALS: BP 109/65
--- NOTE | 2023-10-06 12:33 | W.PN.HOSP.TC ---
Today's Communication/Plan
-
Monitor vital signs and see plan
Trial of low-dose mirtazapine tonight
updated over the phone
credit control manager for SNF
Assessment / Plan
Assessment / Plan
Gen: NAD, Awake and alert, appears older than stated age
Eyes: EOMI, PERRLA, no scleral icterus.
Neck: supple.
CV: remains RRR, +S1/S2, no m/r/g.
Resp: CTAB anteriorly, no rales, wheezes, or rhonchi.
Abd: continues to remain +BS, soft, NT, ND
Skin: Minimal erythema without induration on the distal posterior left thigh and proximal posterior left leg
Neuro: CN 2-12 intact, non-focal.
Psych: Normal mood and affect.
10/01/23 20:45 Blood/Venous Blood Culture - Preliminary
No Growth in 48 hours- Final report to follow
10/01/23 19:46 Blood/Venous Blood Culture - Preliminary
No Growth in 48 hours- Final report to follow
BARRY, hypotension:
-monitor
-midodrine increased to 10mg PO TID
sodium bicarb
Suspect
spoke with ; will restart low dose mirtazapine
Non-AG metabolic acidosis:
resolved
Prior MRSA bacteremia:
-immunocompromised from Humira/chronic steroids
-The patient does have a history of chronic hypotension but she also has a history of recent MRSA bacteremia.� Her left lower extremity has an area that is mildly erythematous (was borderline cellulitic on admission, now improved).�
-Stop IV Vanco with NEG BCxs
on levofloxacin
Hypokalemia
Replete
Dysphagia:
-VSE 10/05 showed dysphagia; now on soft and bite size
GI following; patient doesnt want EGD at this time
Other problems:
Hypomagnesemia: resolved
Hyponatremia, mild
Recent UTI: cont Levaquin
Anemia of chronic disease
Chronic transaminitis: AST minimally elevated, chronic. Earlier in the month abdominal ultrasound was normal
RA
PMR
Hypothyroidism: cont Levoxyl
GERD: cont PPI
h/o lower GI bleed from stercoral colitis
FULL/heparin
PT/OT rec SNF
Anticipated Discharge: Within 24 hours
Subjective/Interval History
-
Date of Service: October 06, 2023
denies pain
Objective Data
-
Labs:
Laboratory Results
10/06/23
05:36
WBC 9.1
Hgb 8.6 L
Hct 23.1 L
Plt Count 102 L
Sodium 134 L
Potassium 3.2 L
Chloride 104
Carbon Dioxide 21 L
BUN 10
Creatinine 1.2 H
Glucose 79
Calcium 7.6 L
Vital Signs:
Vital Signs
Temp Pulse Resp BP Pulse Ox
97.9 F 91 17 109/65 96
10/06/23 11:45 10/06/23 11:45 10/06/23 11:45 10/06/23 11:45 10/06/23 11:45
I&O
10/05/23 10/06/23 10/07/23
06:59 06:59 06:59
Intake Total 1320 / 1320 900 / 900
Balance 1320 / 1320 900 / 900
--- NOTE | 2023-10-06 12:53 | CM ---
Per Attending's request, contacted patient's to discuss SNF preferences: [facility]
[2023-10-06] MEDS: SODIUM BICARBONATE 650 MG PO ×3 (14:06→21:44)
[2023-10-06 15:37] VITALS: BP 111/67
[2023-10-06 19:30] VITALS: BP 110/77
[2023-10-06] MEDS: REMERON 7.5 MG PO (21:44)
[2023-10-06 23:00] VITALS: BP 102/66
[2023-10-07] VITALS (7 sets, daily range): BP systolic 82–120; BP diastolic 63–74; PULSE 85–114; O2SAT 93–99; BMI 33.4
[2023-10-07] MEDS: SYNTHROID 75 MCG PO (06:20)
[2023-10-07 06:31] LABS: % Basophils 0.3 % (0-2); % Eosinophils 5.4 % (0-6); % Immature Granulocytes 0.6 % (0-0.5); % Lymphocytes 17.1 % (20.5-51.1); % Monocytes 8.6 % (1.7-9.3); Absolute Eosinophils 0.4 10^3/uL (0-0.7); Absolute Immature Granulocytes 0.1 10^3/uL (0-0.05); Absolute Lymphocytes 1.3 10^3/uL (1.2-3.4); Absolute Monocytes 0.7 10^3/uL (0.1-0.6); Absolute Neutrophils 5.2 10^3/uL (1.4-6.5); Hematocrit 22.3 % (37.0-47.0); Hemoglobin 7.7 g/dL (12.0-16.0); Mean Corp Hgb Conc. 34.5 g/dL (33.0-37.0); Mean Corpuscular Hgb 27.8 pg (27.0-31.0); Mean Corpuscular Volume 80.5 fL (81.0-99.0); Mean Platelet Volume 13.1 fL (7.4-10.4); Nucleated Red Blood Cells % 0 %; Platelet Count 106 10^3/uL (130-400); Red Blood Cell Count 2.77 10^6/uL (4.20-5.40); Red Cell Dist. Width 16.8 % (11.5-14.5); White Blood Cell Count 7.7 10^3/uL (4.8-10.8)
[2023-10-07 06:57] LABS: Blood Urea Nitrogen 10 mg/dl (7-17); Calcium 7.6 mg/dl (8.4-10.2); Carbon Dioxide 26 mmol/L (22-30); Chloride 107 mmol/L (98-107); Estimated Creatinine Clearance 40 ml/min; Glucose 74 mg/dl (70-99); Potassium 3.2 mmol/L (3.5-5.1); Sodium 135 mmol/L (135-145); eGFR 48.39
[2023-10-07] MEDS: NEURONTIN 300 MG PO (08:41)
[2023-10-07] MEDS: CYMBALTA DELAYED RELEASE 30 MG PO (08:41)
[2023-10-07] MEDS: HEPARIN 5000 UNITS SC (08:42)
[2023-10-07] MEDS: ProAmatine 10 MG PO ×3 (08:42→17:43)
[2023-10-07] MEDS: DESENEX/MITRAZOL/ZEASORB 1 APPLIC TOPICAL (08:45)
[2023-10-07] MEDS: KCL ELIXIR 40 MEQ PO (08:45)
--- NOTE | 2023-10-07 09:48 | CM ---
Addendum entered by Malka Zamorano 10/07/23 17:23:
IMM explained to spouse via phone
Addendum entered by Malka Zamorano 10/07/23 17:17:
Transport forms faxed to [facility] community service specialistLoida zazueta
Addendum entered by Malka Zamorano 10/07/23 17:10:
Report # [phone];

Printing Mechanist will schedule Ambulance Transport to [facility]; pick may not be until 8 or 9 PM vickie. Yuni @ [facility] aware and approved late arrival.
aware via phone that ambulance cost may not be covered by Medicare; and if it is not, he will be billed for payment
Addendum entered by Malka Zamorano 10/07/23 16:40:
Approved for skilled bed 10/07 - 10/11
Auth# [id number]; #
Addendum entered by Malka Zamorano 10/07/23 14:16:
OT evaluation needed to obtain insurance authorization
Need to submit insurance authorization: [employer]
[facility] NPI [phone]
Provider: Yue NPI # [id number]
Plan: discharge to [facility] SNF today pending approval of authorization
Report # [phone];

Original Note:
SNF referral responses pending
--- NOTE | 2023-10-07 12:02 | W.PN.HOSP.TC ---
Addendum entered and electronically signed by Lyle Chen MD 10/08/23 08:17:
time of discharge 37 minutes
Original Note:
Today's Communication/Plan
-
monitor vitals
see plan
cw diet
replete K
cw mirtazapine
awaiting SNF
Assessment / Plan
Assessment / Plan
Gen: NAD, Awake and alert, appears older than stated age
Eyes: EOMI, PERRLA, no scleral icterus.
Neck: supple.
CV: remains RRR, +S1/S2, no m/r/g.
Resp: CTAB anteriorly, no rales, wheezes, or rhonchi.
Abd: continues to remain +BS, soft, NT, ND
Skin: Minimal erythema without induration on the distal posterior left thigh and proximal posterior left leg
Neuro: CN 2-12 intact, non-focal.
Psych: Normal mood and affect.
10/01/23 20:45 Blood/Venous Blood Culture - Preliminary
No Growth in 48 hours- Final report to follow
10/01/23 19:46 Blood/Venous Blood Culture - Preliminary
No Growth in 48 hours- Final report to follow
BARRY, hypotension:
-monitor
-midodrine increased to 10mg PO TID
sodium bicarb
Suspect sundowning
spoke with ; will restart low dose mirtazapine
Non-AG metabolic acidosis:
resolved
Prior MRSA bacteremia:
-immunocompromised from Humira/chronic steroids
-The patient does have a history of chronic hypotension but she also has a history of recent MRSA bacteremia.� Her left lower extremity has an area that is mildly erythematous (was borderline cellulitic on admission, now improved).�
-Stop IV Vanco with NEG BCxs
on levofloxacin
Hypokalemia
Replete
Dysphagia:
-VSE 10/05 showed dysphagia; now on soft and bite size
GI following; patient doesnt want EGD at this time
Other problems:
Hypomagnesemia: resolved
Hyponatremia, mild
Recent UTI: cont Levaquin
Anemia of chronic disease
Chronic transaminitis: AST minimally elevated, chronic. Earlier in the month abdominal ultrasound was normal
RA
PMR
Hypothyroidism: cont Levoxyl
GERD: cont PPI
h/o lower GI bleed from stercoral colitis
FULL/heparin
PT/OT rec SNF
Anticipated Discharge: Today
Subjective/Interval History
-
Date of Service: October 07, 2023
denies pain
Objective Data
-
Labs:
Laboratory Results
10/07/23
05:26
WBC 7.7
Hgb 7.7 L
Hct 22.3 L
Plt Count 106 L
Sodium 135
Potassium 3.2 L
Chloride 107
Carbon Dioxide 26
BUN 10
Creatinine 1.2 H
Glucose 74
Calcium 7.6 L
Vital Signs:
Vital Signs
Temp Pulse Resp BP Pulse Ox
98.1 F 69 16 115/74 96
10/07/23 11:43 10/07/23 11:43 10/07/23 11:43 10/07/23 11:43 10/07/23 11:43
I&O
10/06/23 10/07/23 10/08/23
06:59 06:59 06:59
Intake Total 900 / 900 840 / 840
Balance 900 / 900 840 / 840
--- NOTE | 2023-10-07 16:13 | WOUNDNOTE ---
RIGHT KNEE OPEN SCAB
--- NOTE | 2023-10-07 16:14 | WOUNDNOTE ---
[facility] RN NOTE: Reviewed chart, met with patient and spoke to RN, Magen. Per chart review patient has of right patellar hardware infection s/p removal a few months ago. Magen noted that the distal right knee scab had fallen off and she promptly
cleaned and covered the site. On assessment there is a small amount of serous drainage, no pain or erythema and the wound bed is pink. Two proximal scabs are intact and were covered with foam dressing. Right LE appears to have scattered ecchymosis
throughout and +2 edema. + audible pulse with doppler. Local wound care and compression applied to right LE. Patient is on turning schedule and heels are intact and off-loaded on pillows. MASD with open areas noted under right breast, the skin was
cleaned with normal saline and Calazime applied. Magen reported that patient has stage 2 sacral wound that is covered with silicone border foam. Will confirm orders with hospitalist. Care plan and discharge instructions updated. Plan is for SNF.
Will continue to follow as needed.
--- NOTE | 2023-10-07 16:51 | W.DCSUMMARY ---
Addendum entered and electronically signed by Lyle Chen MD 10/08/23 08:18:
Correct Date of Discharge: 10/07/23
Original Note:
Discharge Summary
Discharge Data
Date of Admission: 10/01/23
Date of Discharge: 10/08/23
-
Pending Results: No
Hospital Course
73-year-old female with past medical history of MRSA bacteremia, right knee infection, UTI, anemia of chronic disease, polymyalgia rheumatica, rheumatoid arthritis, hypothyroidism, GERD, history of GI bleed, chronic transaminitis came to the
hospital with acute kidney injury and hypotension secondary to dehydration. Patient midodrine was increased to 10 mg 3 times daily on this hospitalization. Patient also had nonanion gap metabolic acidosis which over time improved. On this
hospitalization patient also had problem with dysphagia and got video swallow study which showed dysphagia. Speech therapy then recommended gastroenterology evaluation. GI saw the patient this hospitalization however patient continued to refuse
endoscopy. Per speech recommendation patient was then kept on soft and bite-size food along with thin liquids. Patient tolerated diet well. On this hospitalization patient also had sundowning for which her mirtazapine was restarted on a lower
dose. Patient was also evaluated by physical therapy who recommended SNF. Once patient symptoms were improving she was then discharged to SNF with close follow-up with all her physicians outpatient.
Discharge Plan
-
Patient Disposition: Group Home/SNF
Discharge Diagnosis/Procedures: Acute kidney injury
Dehydration
Hypotension
Sundowning
Nonanion gap metabolic acidosis
Dysphagia
Prior MRSA bacteremia
Diet: Other diet
Additional Diets: Soft and bite-size with thin liquids
Activity: As tolerated
Driving Restrictions: No driving
Bathing Restrictions: None
Activity Restrictions/Additional Instructions:
Wound Care Instructions Right LE wound- Clean with normal saline or wound cleanser. Cover with Xeroform and silicone foam dressing. Change Q 48 hours and PRN if loose or soiled.
Keep proximal scabs covered with silicone foam and change Q 48 hours and PRN if loose or soiled.
Follow up at wound care center call for an appointment.
Referrals:
Fercho Franco MD [Family Provider] - in less than 1 week
Kathryn Darden MD [Active] - (Follow up with GI if wish to consider EGD/colon for anemia or GI testing for abnormal swallowing study)
Prescriptions:
New
miconazole nitrate [Miconazorb AF] 2 % Powder
1 applic topical BID Qty: 85 0RF
midodrine 5 mg Tablet
10 mg PO TID@0800,1300,1800 Qty: 0 0RF
gabapentin 300 mg Capsule
300 mg PO BID Qty: 0 0RF
polyethylene glycol 3350 [HealthyLax] 17 gram Powder In Packet
17 g PO DAILY PRN (Reason: constipation) Qty: 0 0RF
Continued
levothyroxine 75 MCG tablet
75 mcg PO DAILY@07
famotidine 20 MG tablet
20 mg PO DAILYPRN PRN (Reason: indigestion)
Patient Comments:
10/01/2023, takes as needed when taking her Levofloxacin.
ascorbic acid (vitamin C) [Vitamin C] 500 MG tablet
500 mg PO DAILY
vitamin B complex Tablet
1 tab PO DAILY
levofloxacin 750 mg tablet
750 mg PO Q48H@1200
duloxetine 30 mg Capsule,Delayed Release(Dr/Ec)
30 mg PO DAILY
cholecalciferol (vitamin D3) 125 mcg (5,000 unit) Tablet
125 mcg PO DAILY
Changed
mirtazapine 15 mg Tablet
7.5 mg PO HS Qty: 30 0RF
Discontinued
gabapentin 600 mg tablet
600 mg PO BID
midodrine 5 mg tablet
5 mg PO TID
Discharge Orders:
Discharge Patient (As Directed); Ordered 10/07/23
Ordered By: Lyle Chen
Discharge Date and Time
Discharge Date/Time: 10/07/23 18:29
[2023-10-07 16:52] LABS: Endomysial IgA Antibody Titer <1:10 (<1:10)
== END 2023-10-07 18:29 | DRG 683 ==
LOC: 3 WEST ACU 16:21
PROVIDERS: Physician Assistant; Registered Nurse; ADMITTING PHYSICIAN Internal Medicine; ATTENDING PHYSICIAN Internal Medicine; CONSULT PHYSICIAN Internal Medicine Gastroenterology; EMERGENCY PHYSICIAN Emergency Medicine; FAMILY PHYSICIAN Family Medicine
DX: N17.9 Acute kidney failure, unspecified (principal); D84.9 Immunodeficiency, unspecified; E87.20 Acidosis, unspecified; E87.1 Hypo-osmolality and hyponatremia; J44.0 Chronic obstructive pulmonary disease with (acute) lower respiratory infection; I13.0 Hypertensive heart and chronic kidney disease with heart failure and stage 1 through stage 4 chronic kidney disease, or unspecified chronic kidney disease; F05 Delirium due to known physiological condition; N39.0 Urinary tract infection, site not specified; Z87.891 Personal history of nicotine dependence; N18.31 Chronic kidney disease, stage 3a; I95.9 Hypotension, unspecified; D63.8 Anemia in other chronic diseases classified elsewhere; E03.9 Hypothyroidism, unspecified; K21.9 Gastro-esophageal reflux disease without esophagitis; E88.09 Other disorders of plasma-protein metabolism, not elsewhere classified; D69.6 Thrombocytopenia, unspecified; E87.6 Hypokalemia; I50.9 Heart failure, unspecified; E78.00 Pure hypercholesterolemia, unspecified
CPT/HCPCS: 51798; 74230; 80048; 80053; 80202; 81003; 81015; 82248; 82607; 82728; 82746; 82784; 83516; 83540; 83550; 83735; 85025; 85027; 86231; 87040; 92526; 92610; 92611; 93005; 96360; 96361; 97163; 97167; 97530; 99285; J7030

== ENCOUNTER → 2023-10-13 10:18 | Outpatient (REF) | payer BC, OTHER, SELFPAY ==
[2023-10-13 11:48] LABS: Blood Urea Nitrogen 16 mg/dl (7-17); Calcium 7.5 mg/dl (8.4-10.2); Carbon Dioxide 22 mmol/L (22-30); Chloride 107 mmol/L (98-107); Glucose 57 mg/dl (70-99); Sodium 134 mmol/L (135-145); eGFR 34.27
== END ==
LOC: OLABP 10:18
PROVIDERS: ATTENDING PHYSICIAN Student in an Organized Health Care Education/Training Program
DX: N17.9 Acute kidney failure, unspecified (principal); N18.30 Chronic kidney disease, stage 3 unspecified; D64.9 Anemia, unspecified; I50.9 Heart failure, unspecified; J44.9 Chronic obstructive pulmonary disease, unspecified; I95.9 Hypotension, unspecified; E87.1 Hypo-osmolality and hyponatremia
CPT/HCPCS: 36415; 80048

== ENCOUNTER → 2023-10-15 09:32 | Outpatient (REF) | payer BC, OTHER, SELFPAY ==
[2023-10-15 11:47] LABS: Blood Urea Nitrogen 16 mg/dl (7-17); Calcium 7.6 mg/dl (8.4-10.2); Carbon Dioxide 23 mmol/L (22-30); Chloride 104 mmol/L (98-107); Glucose 56 mg/dl (70-99); Potassium 2.9 mmol/L (3.5-5.1); Sodium 137 mmol/L (135-145); eGFR 34.27
== END ==
LOC: OLABP 09:32
PROVIDERS: ATTENDING PHYSICIAN Student in an Organized Health Care Education/Training Program
DX: N17.9 Acute kidney failure, unspecified (principal); N18.31 Chronic kidney disease, stage 3a; D64.9 Anemia, unspecified; I50.9 Heart failure, unspecified; J44.9 Chronic obstructive pulmonary disease, unspecified; I95.9 Hypotension, unspecified; E87.1 Hypo-osmolality and hyponatremia
CPT/HCPCS: 36415; 80048

== ENCOUNTER 2023-10-15 17:44 | Inpatient (IN) | payer OTHER, SELFPAY ==
[2023-10-15] VITALS (14 sets, daily range): BP systolic 62–111; BP diastolic 44–81; BMI 32.6
[2023-10-15 14:41] LABS: % Basophils 0.3 % (0-2); % Eosinophils 6.8 % (0-6); % Immature Granulocytes 0.6 % (0-0.5); % Lymphocytes 13.2 % (20.5-51.1); % Monocytes 7.3 % (1.7-9.3); % Neutrophils 71.8 % (42.2-75.2); Absolute Eosinophils 0.9 10^3/uL (0-0.7); Absolute Immature Granulocytes 0.1 10^3/uL (0-0.05); Absolute Lymphocytes 1.7 10^3/uL (1.2-3.4); Absolute Monocytes 0.9 10^3/uL (0.1-0.6); Hematocrit 25.1 % (37.0-47.0); Hemoglobin 8.5 g/dL (12.0-16.0); Mean Corp Hgb Conc. 33.9 g/dL (33.0-37.0); Mean Corpuscular Hgb 28.9 pg (27.0-31.0); Mean Corpuscular Volume 85.4 fL (81.0-99.0); Mean Platelet Volume 11.2 fL (7.4-10.4); Nucleated Red Blood Cells % 0 %; Platelet Count 208 10^3/uL (130-400); Red Blood Cell Count 2.94 10^6/uL (4.20-5.40); Red Cell Dist. Width 20.7 % (11.5-14.5); White Blood Cell Count 12.6 10^3/uL (4.8-10.8)
[2023-10-15 14:55] LABS: ALT (SGPT) 18 U/L (0-35); AST (SGOT) 51 U/L (14-36); Alkaline Phosphatase 210 U/L (38-126); Blood Urea Nitrogen 15 mg/dl (7-17); Calcium 7.9 mg/dl (8.4-10.2); Carbon Dioxide 21 mmol/L (22-30); Chloride 107 mmol/L (98-107); Estimated Creatinine Clearance 28 ml/min; Glucose 80 mg/dl (70-99); Sodium 137 mmol/L (135-145); Total Bilirubin 1.4 mg/dl (0.2-1.3); Total Protein 4.4 g/dl (6.3-8.2); eGFR 31.86
[2023-10-15 14:58] LABS: NT-proBNP 2020 pg/ml
[2023-10-15 16:39] LABS: Lactic Acid 2.1 mmol/L (0.7-2.0)
[2023-10-15 16:49] LABS: Urine Albumin Trace (Neg - Trace); Urine Bilirubin 1+ (Negative); Urine Character Slightly Cloudy (Clear); Urine Color Yellow; Urine Glucose Negative (Negative); Urine Ketone 1+ (Negative); Urine Leukocyte 2+ (Negative); Urine Nitrite Negative (Negative); Urine Occult Blood Negative (Negative); Urine Urobilinogen Negative (Neg - 1+)
--- NOTE | 2023-10-15 16:52 | ED.GENMED ---
History of Present Illness
<Vick Lomax Jr., PA-C - Last Filed: 10/15/23 17:32>
General
Chief Complaint: Blood Pressure Problem
Source: patient and half-way
Exam Limitations: none
Time Seen by Provider: 10/15/23 14:48
Nursing documentation reviewed up to this point in time: agreed with
Travel History
Have you had any contact with someone who has COVID-19?: No
Do you have any symptoms of coronavirus? Fever > 100 degrees, chills, cough, shortness of breath, sore throat, loss of taste or smell, muscle aches, or headache?: No
History of Present Illness
History of Present Illness:
73-year-old female presenting to the emergency department today with concerns of low blood pressure while at the nursing facility. Blood pressure in the 80s over 50s she also apparently felt some lightheadedness intermittently. She was recently
admitted to the hospital 2 weeks ago with sepsis with bacteremia of MRSA. She denies any specific chest pain shortness of breath redness swelling warmth of her extremities.
Past History
<Vick Lomax Jr., PA-C - Last Filed: 10/15/23 17:32>
Past History
ED Past Medical History: CHF, COPD, GERD, HTN, Hypercholesterolemia, NIDDM, Hypothyroidism, Psychiatric (Anxiety, ), Other (dvt PE, Cellulitis, Migraines, PNA, Ovarian cyst Uterine cyst, Cellulitis, Sarcoidosis, Polymyalgia rheumatics. ) and Other
(The patient has a benign cyst and the uterus); Negative Asthma
ED Past Surgical History: None, Cholecystectomy, Orthopedic (Lumbar laminectomy 02/08/2018, Right ankle surgery, Right patella surgery, ) and Other (Cataracts, )
Social History
Tobacco: Former smoker
Alcohol: None
Personal:
Living: with family
Employment: Employed
Family History
Family History: Hypertension
Review of Systems
<Vick Lomax Jr., PA-C - Last Filed: 10/15/23 17:32>
Review of Systems
Allergies reviewed?: Yes
All Other Systems: ROS reviewed and negative except as documented in HPI and ROS
Phy Exam
<Vick Lomax Jr., PA-C - Last Filed: 10/15/23 17:32>
Physical Exam
Physical Exam:
GENERAL: Alert , in no apparent distress
EYE: pupils equal and reactive
NECK: Supple, no significant adenopathy.
ENT: o/p clr, mmm.
CARDIAC: Regular rate and rhythm .
LUNGS: Clear breath sounds bilaterally, no acute respiratory distress, no wheezes/rales/rhonchi
ABDOMEN: Soft, without focal tenderness, no r/g, no cvat
NEUROLOGICAL: Alert and oriented, no focal neuro deficits
SKIN: Warm and dry, skin intact.
MUSCULOSKELETAL: No edema, well perfused.
PSYCH: Normal and appropriate interaction.
Course
<LISE Quintero Jr. - Last Filed: 10/15/23 17:32>
Orders/Labs/Results
Orders:
Orders
10/15/23 14:10
EKG- Treatment ONCE
10/15/23 14:24
Complete Blood Count/With Diff Urgent
Comprehensive Metabolic Panel Urgent
Direct Bilirubin Urgent
Comment: ADD ON
NT-proBNP Urgent
10/15/23 Dinner
IDDSI 6 - Soft & Bite Sized
At Your Request: Limited Participation
10/15/23 16:22
Lactic Acid Urgent
Blood Culture Q30M
ABILIO Source: Blood/Venous
Specimen Description:
10/15/23 16:39
Urinalysis Reflex To Culture Urgent
Date Specimen was Collected: 10/15/23
Time Specimen was Collected: 16:22
Urine Microscopic Reflex Cult Urgent
Blood Culture Q30M
ABILIO Source: Blood/Venous
Specimen Description:
Urine Culture Urgent
ABILIO Source: U
Specimen Description:
Date Specimen was Collected: 10/15/23
Time Specimen was Collected: 16:22
10/15/23 16:53
Cefepime HCl [Maxipime] 2,000 mg IV NOW STA
10/15/23 16:54
0.9% Sodium Chloride 500 ml [Nss] 500 ml IV BOLUS
10/15/23 17:03
Add On- LAB Routine
Tests Added?: direct bilirubin
10/15/23 17:26
Midodrine [ProAmatine] 10 mg PO NOW STA
10/15/23 17:33
CR Chest - 2 Views Urgent
Comment:
Reason For Exam: sepsis
10/15/23 17:36
Admit/Transfer Patient As Directed
Co-Sign Provider:
Level of Care: Inpatient admission
Assign to:: IMU- Intermediate Care
Physician / Group: Elvia Musa
Diagnosis: severe sepsis; hypotension
Reason for Hospitalization: severe sepsis; hypotension
Expected length of stay greater than two midnights?: Yes
ELOS- Estimated Length of Stay in days: 3
I certify the patient meets the requirements for IP care: Yes
10/15/23 17:40
Code Status As Directed
Resuscitation Status: Full Code
10/15/23 17:49
Influenza A+B Rapid Molecular Routine
ABILIO Source: Nasal Swab
Specimen Description:
10/15/23 19:36
Acetaminophen [Tylenol] 650 mg PO Q4HPRN PRN
Bisacodyl [Dulcolax] 10 mg RECTAL DAILYPRN PRN
Lactated Ringers [Lr] 500 ml IV 100 mls/hr
VANCOMYCIN Pharmacy to Dose [VANCOCIN Pharmacy to Dose] 1 each Pharmacy To Prepare [Call Pharmacy To Prepare] 0 ml IV PER PROTOCOL
10/15/23 19:36
Activity As Directed
Activity Level: As Tolerated
Vital Signs As Directed
Frequency: Per unit guidelines
DX Deep Vein Thrombosis Video Routine
10/15/23 20:00
Gabapentin [Neurontin] 300 mg PO BID
Miconazole Nitrate [Desenex/Mitrazol/Zeasorb] 0 applic TOPICAL BID
10/15/23 22:00
Mirtazapine [Remeron] 7.5 mg PO HS
10/16/23 04:02
Complete Blood Count/With Diff IN AM
Comprehensive Metabolic Panel IN AM
Cortisol, Random IN AM
Magnesium IN AM
TSH IN AM
10/16/23 07:00
Levothyroxine [Synthroid] 75 mcg PO DAILY@0700
10/16/23 08:00
Cholecalciferol (Vitamin D3) [VITAMIN D3 (cholecalciferol)] 125 mcg PO DAILY
Docusate Sodium [Colace] 200 mg PO DAILY
Duloxetine Delayed Release [Cymbalta Delayed Release] 30 mg PO DAILY
Heparin 5,000 units SC Q12
Midodrine [ProAmatine] 10 mg PO TID@0800,1300,1800
Pantoprazole [Protonix] 40 mg PO DAILY
Polyethylene Glycol Powder [Miralax] 17 grams PO DAILY
Potassium Chloride [KCl] 20 meq PO DAILY
10/16/23 18:00
Cefepime HCl [Maxipime] 2,000 mg IV Q24H
Abnormal Lab Results
10/15/23 10/15/23 10/15/23
14:24 16:22 16:39
WBC 12.6 H 10^3/uL
(4.8-10.8)
RBC 2.94 L 10^6/uL
(4.20-5.40)
Hgb 8.5 L g/dL
(12.0-16.0)
Hct 25.1 L %
(37.0-47.0)
RDW 20.7 H %
(11.5-14.5)
MPV 11.2 H fL
(7.4-10.4)
Abs Immat Gran (auto) 0.1 H 10^3/uL
(0-0.05)
Absolute Neuts (auto) 9.0 H 10^3/uL
(1.4-6.5)
Absolute Monos (auto) 0.9 H 10^3/uL
(0.1-0.6)
Absolute Eos (auto) 0.9 H 10^3/uL
(0-0.7)
Immature Gran % 0.6 H %
(0-0.5)
Lymphocytes % 13.2 L %
(20.5-51.1)
Eosinophils % 6.8 H %
(0-6)
Carbon Dioxide 21 L mmol/L
(22-30)
Creatinine 1.7 H mg/dL
(0.6-1.0)
Lactic Acid 2.1 H mmol/L
(0.7-2.0)
Calcium 7.9 L mg/dl
(8.4-10.2)
Total Bilirubin 1.4 H mg/dl
(0.2-1.3)
Direct Bilirubin 0.7 H mg/dl
(0.0-0.4)
AST 51 H U/L
(14-36)
Alkaline Phosphatase 210 H U/L
(38-126)
Total Protein 4.4 L g/dl
(6.3-8.2)
Albumin 2.0 L g/dl
(3.5-5.0)
Urine Ketones 1+ A
(Negative)
Urine Bilirubin 1+ A
(Negative)
Leukocyte Esterase Rfl 2+ A
(Negative)
Urine WBC (Reflex) 21-25 A /HPF
(0-5)
Urine Bacteria (Reflex) Many A
(Negative)
Urine Yeast Moderate A
(Negative)
10/15/23 14:24
10/15/23 14:24
Vital Signs
Initial and Last Documented VS:
Initial Vital Signs
Temp Pulse Resp BP Pulse Ox
97.6 F 91 20 84/68 98
10/15/23 14:12 10/15/23 14:12 10/15/23 14:12 10/15/23 14:12 10/15/23 14:12
Last Documented Vital Signs
Temp Pulse Resp BP Pulse Ox
97.3 F 95 17 92/54 96
10/16/23 07:19 10/16/23 08:20 10/16/23 06:00 10/16/23 08:20 10/16/23 06:00
<Musa You, - Last Filed: 10/16/23 09:01>
Orders/Labs/Results
Orders:
Orders
10/15/23 14:10
EKG- Treatment ONCE
10/15/23 14:24
Complete Blood Count/With Diff Urgent
Comprehensive Metabolic Panel Urgent
Direct Bilirubin Urgent
Comment: ADD ON
NT-proBNP Urgent
10/15/23 Dinner
IDDSI 6 - Soft & Bite Sized
At Your Request: Limited Participation
10/15/23 16:22
Lactic Acid Urgent
Blood Culture Q30M
ABILIO Source: Blood/Venous
Specimen Description:
10/15/23 16:39
Urinalysis Reflex To Culture Urgent
Date Specimen was Collected: 10/15/23
Time Specimen was Collected: 16:22
Urine Microscopic Reflex Cult Urgent
Blood Culture Q30M
ABILIO Source: Blood/Venous
Specimen Description:
Urine Culture Urgent
ABILIO Source: U
Specimen Description:
Date Specimen was Collected: 10/15/23
Time Specimen was Collected: 16:22
10/15/23 16:53
Cefepime HCl [Maxipime] 2,000 mg IV NOW STA
10/15/23 16:54
0.9% Sodium Chloride 500 ml [Nss] 500 ml IV BOLUS
10/15/23 17:03
Add On- LAB Routine
Tests Added?: direct bilirubin
10/15/23 17:26
Midodrine [ProAmatine] 10 mg PO NOW STA
10/15/23 17:33
CR Chest - 2 Views Urgent
Comment:
Reason For Exam: sepsis
10/15/23 17:36
Admit/Transfer Patient As Directed
Co-Sign Provider:
Level of Care: Inpatient admission
Assign to:: IMU- Intermediate Care
Physician / Group: Elvia Musa
Diagnosis: severe sepsis; hypotension
Reason for Hospitalization: severe sepsis; hypotension
Expected length of stay greater than two midnights?: Yes
ELOS- Estimated Length of Stay in days: 3
I certify the patient meets the requirements for IP care: Yes
10/15/23 17:40
Code Status As Directed
Resuscitation Status: Full Code
10/15/23 17:49
Influenza A+B Rapid Molecular Routine
ABILIO Source: Nasal Swab
Specimen Description:
10/15/23 19:36
Acetaminophen [Tylenol] 650 mg PO Q4HPRN PRN
Bisacodyl [Dulcolax] 10 mg RECTAL DAILYPRN PRN
Lactated Ringers [Lr] 500 ml IV 100 mls/hr
VANCOMYCIN Pharmacy to Dose [VANCOCIN Pharmacy to Dose] 1 each Pharmacy To Prepare [Call Pharmacy To Prepare] 0 ml IV PER PROTOCOL
10/15/23 19:36
Activity As Directed
Activity Level: As Tolerated
Vital Signs As Directed
Frequency: Per unit guidelines
DX Deep Vein Thrombosis Video Routine
10/15/23 20:00
Gabapentin [Neurontin] 300 mg PO BID
Miconazole Nitrate [Desenex/Mitrazol/Zeasorb] 0 applic TOPICAL BID
10/15/23 22:00
Mirtazapine [Remeron] 7.5 mg PO HS
10/16/23 04:02
Complete Blood Count/With Diff IN AM
Comprehensive Metabolic Panel IN AM
Cortisol, Random IN AM
Magnesium IN AM
TSH IN AM
10/16/23 07:00
Levothyroxine [Synthroid] 75 mcg PO DAILY@0700
10/16/23 08:00
Cholecalciferol (Vitamin D3) [VITAMIN D3 (cholecalciferol)] 125 mcg PO DAILY
Docusate Sodium [Colace] 200 mg PO DAILY
Duloxetine Delayed Release [Cymbalta Delayed Release] 30 mg PO DAILY
Heparin 5,000 units SC Q12
Midodrine [ProAmatine] 10 mg PO TID@0800,1300,1800
Pantoprazole [Protonix] 40 mg PO DAILY
Polyethylene Glycol Powder [Miralax] 17 grams PO DAILY
Potassium Chloride [KCl] 20 meq PO DAILY
10/16/23 18:00
Cefepime HCl [Maxipime] 2,000 mg IV Q24H
Abnormal Lab Results
10/15/23 10/15/23 10/15/23
14:24 16:22 16:39
WBC 12.6 H 10^3/uL
(4.8-10.8)
RBC 2.94 L 10^6/uL
(4.20-5.40)
Hgb 8.5 L g/dL
(12.0-16.0)
Hct 25.1 L %
(37.0-47.0)
RDW 20.7 H %
(11.5-14.5)
MPV 11.2 H fL
(7.4-10.4)
Abs Immat Gran (auto) 0.1 H 10^3/uL
(0-0.05)
Absolute Neuts (auto) 9.0 H 10^3/uL
(1.4-6.5)
Absolute Monos (auto) 0.9 H 10^3/uL
(0.1-0.6)
Absolute Eos (auto) 0.9 H 10^3/uL
(0-0.7)
Immature Gran % 0.6 H %
(0-0.5)
Lymphocytes % 13.2 L %
(20.5-51.1)
Eosinophils % 6.8 H %
(0-6)
Carbon Dioxide 21 L mmol/L
(22-30)
Creatinine 1.7 H mg/dL
(0.6-1.0)
Lactic Acid 2.1 H mmol/L
(0.7-2.0)
Calcium 7.9 L mg/dl
(8.4-10.2)
Total Bilirubin 1.4 H mg/dl
(0.2-1.3)
Direct Bilirubin 0.7 H mg/dl
(0.0-0.4)
AST 51 H U/L
(14-36)
Alkaline Phosphatase 210 H U/L
(38-126)
Total Protein 4.4 L g/dl
(6.3-8.2)
Albumin 2.0 L g/dl
(3.5-5.0)
Urine Ketones 1+ A
(Negative)
Urine Bilirubin 1+ A
(Negative)
Leukocyte Esterase Rfl 2+ A
(Negative)
Urine WBC (Reflex) 21-25 A /HPF
(0-5)
Urine Bacteria (Reflex) Many A
(Negative)
Urine Yeast Moderate A
(Negative)
10/15/23 14:24
10/15/23 14:24
Vital Signs
Initial and Last Documented VS:
Initial Vital Signs
Temp Pulse Resp BP Pulse Ox
97.6 F 91 20 84/68 98
10/15/23 14:12 10/15/23 14:12 10/15/23 14:12 10/15/23 14:12 10/15/23 14:12
Last Documented Vital Signs
Temp Pulse Resp BP Pulse Ox
97.3 F 95 17 92/54 96
10/16/23 07:19 10/16/23 08:20 10/16/23 06:00 10/16/23 08:20 10/16/23 06:00
<Vick Lomax Jr., PA-C - Last Filed: 10/15/23 17:32>
MDM/Problems Addressed
MDM/Problems Addressed:
73-year-old female in no distress presenting to the emergency department today with low blood pressure while at her nursing facility. Here she denies any specific complaints but blood pressure is in the 80s over 60s she does take midodrine did take
a dose this morning. Here her white count is 12.6. Lactic acid 2.1. Considering recent sepsis patient was started on empiric antibiotics and admitted. Here blood pressure in the 80s over 50s. Patient with normal mental status throughout ER stay
did not require pressors at this time.
<Vick Lomax Jr., PA-C - Last Filed: 10/15/23 17:32>
*Critical Care Note
Total Time (30-74mins, 75-104mins- exclusive of procedures): Not Applicable
ED Attending Note
<Vick Lomax Jr., PA-C - Last Filed: 10/15/23 17:32>
-
Portions of this chart may have been created with voice recognition software.� Occasional wrong word or��sound alike� substitutions may have occurred due to the inherent limitations of voice recognition software.
<Musa You, DO - Last Filed: 10/16/23 09:01>
ED Attending Note
I performed the substantive portion of visit, reviewed & personally made and approve the management plan that is documented in note by myself or MARLO.: Yes
Discharge Plan
Departure
Patient Disposition: Admit
Date of Disposition: 10/15/23
Time of Disposition: 17:31
Admit to: IMU
Admit to doctor: Danitza
Presentation/result/management discussed w/ accepting MD/DO: Hospitalist
Patient with high blood pressure during this ER visit?: No
Condition: Good
Covid-19: Not Applicable
Discharge Problem:
Hypotension, Elevated lactic acid level
Interventions
Interventions:
*Risk Screen - Suicide Last Done: 10/15/23 14:12
*General Assessment Last Done: 10/15/23 14:12
*Neglect/Abuse Screening Last Done: 10/15/23 14:12
*ED COVID-19 Vaccine History Last Done: 10/15/23 14:12
*Nursing Disposition Last Done: 10/15/23 19:10
ED- Cardiac Assessment Last Done: 10/15/23 15:05
ED- Neurological Assessment Last Done: 10/15/23 15:05
ED- Pulmonary Assessment Last Done: 10/15/23 15:05
Discharge Date and Time
Discharge Date/Time: 10/15/23 19:10
[2023-10-15 16:55] LABS: Urine Hyaline Cast >15 /LPF (0-2); Urine Squamous Cell 0-2 /LPF (Few)
[2023-10-15 16:57] LABS: Urine Bacteria Many (Negative); Urine Red Blood Cell 0-2 /HPF (0-2); Urine White Cell 21-25 /HPF (0-5)
--- NOTE | 2023-10-15 16:58 | HPS.HSE ---
Family Physician
-
Family Physician: Fercho Franco
Chief Complaint
-
low blood pressure
History of Present Illness
Ms. Gale Woods is a 73 yo woman with hx MRSA bacteremia, right knee infection, UTI, anemia of chronic disease, polymyalgia rheumatica, rheumatoid arthritis, hypothyroidism, GERD, history of GI bleed, chronic transaminitis, recent admission
10/01-10/08/23 for BARRY 2/2 dehydration; low BP with increase in [employer] midodrine presents to the ER with low blood pressure seen at [facility].
Patient denies any specific complaints. She notes occasional dizziness. States last got midodrine this morning. No headache. No fevers/chills. No chest pain or shortness of breath. She is non-ambulatory. She has diffuse anasarca and bruising.
No abdominal pain. No nausea/vomiting. She was constipated this morning.
Medical History
Past Medical History
Past Medical History: Reports Other
Additional Past Medical History:
heumatoid arthritis, on chronic prednisone, spinal stenosis, CKD stage III, COPD, PMR, hypothyroidism, generalized weakness
Past Surgical History: Reports Other (right knee surgery)
Social History
Tobacco: Non-smoker
Alcohol: None
Drug: None
Personal:
Living: With Family
Family History
Family History: Not pertinent
Allergies / Home Medications
Allergies reflects when Allergies were last updated in [facility].
Home Medications with original date entered in [facility]
Allergy/Medication List:
Allergies
Allergy/AdvReac Type Severity Reaction Status Date / Time
ampicillin [From Unasyn] Allergy AIN Verified 10/15/23 14:21
methotrexate Allergy no energy Verified 10/15/23 14:21
and lost
weight
pepper (genus Capsicum) Allergy LIKE FOOD Verified 10/15/23 14:21
POISONING/VOMITS/DIARRHEA
sulbactam [From Unasyn] Allergy AIN Verified 10/15/23 14:21
Home Medications
famotidine 20 mg tablet 20 mg PO DAILYPRN PRN indigestion 10/25/20
levofloxacin 750 mg tablet 750 mg PO Q48H@1200 Infected joint 08/18/23
midodrine 5 mg tablet 10 mg PO TID@0800,1300,1800 #0 tabs 10/07/23
acetaminophen 325 mg tablet (Tylenol) 650 mg PO Q4HPRN PRN fever 10/15/23
bisacodyl 10 mg rectal suppository (Dulcolax (bisacodyl)) 10 mg GA DAILYPRN PRN constipation 10/15/23
cholecalciferol (vitamin D3) 125 mcg (5,000 unit) tablet (Vitamin D3) 125 mcg PO DAILY 10/15/23
docusate sodium 100 mg capsule (Colace) 200 mg PO DAILY 10/15/23
duloxetine 30 mg capsule,delayed release (Cymbalta) 30 mg PO DAILY 10/15/23
gabapentin 300 mg capsule 300 mg PO BID 10/15/23
levothyroxine 75 mcg tablet (Synthroid) 75 mcg PO DAILY 10/15/23
magnesium hydroxide 400 mg/5 mL oral suspension (Milk of Magnesia) 2,400 mg PO DAILYPRN PRN if no bm by 4th day 10/15/23
miconazole nitrate 2 % topical powder (Miconazorb AF) 1 applic topical BID moist areA 10/15/23
mirtazapine 7.5 mg tablet 7.5 mg PO HS 10/15/23
nystatin 100,000 unit/gram topical powder 1 applic topical BID b/l breasts/ grion 10/15/23
omeprazole 20 mg tablet,delayed release 20 mg PO DAILY 10/15/23
polyethylene glycol 3350 17 gram oral powder packet (Miralax) 17 g PO DAILYPRN PRN CONSTIPATION 10/15/23
potassium chloride 20 mEq tablet,extended release 20 meq PO DAILY 10/15/23
sodium phosphates 19 gram-7 gram/118 mL enema (Fleet Enema) 118 ml GA DAILYPRN PRN constipation 10/15/23
vitamin B complex 1 cap PO DAILY 10/15/23
zinc oxide 22 % topical cream 1 applic topical BID masd 10/15/23
Review of Systems
-
History Source: Patient
A 12 point ROS was completed and negative except as noted: Yes
Physical Exam
Vital Signs
Vital Signs
Temp Pulse Resp BP Pulse Ox
97.6 F 91 20 84/68 98
10/15/23 14:12 10/15/23 14:12 10/15/23 14:12 10/15/23 14:12 10/15/23 14:12
Physical Exam
General: No Apparent Distress and Obese
HEENT: PERRLA
Respiratory: Clear; No Wheezes
Cardiac: S1/S2 and Regular Rhythm
GI: Soft and Non Tender
Musculoskeletal: Other (diffuse anasarca and bruising)
Skin: Warm, Dry and Rash (upper extremity bruising )
Neuro: AO x 3
Psych: Calm
Laboratory Results
-
10/15/23 14:24
10/15/23 14:24
Laboratory Results
Lactic Acid 2.1 mmol/L (0.7-2.0) H 10/15/23 16:22
Total Bilirubin 1.4 mg/dl (0.2-1.3) H 10/15/23 14:24
AST 51 U/L (14-36) H 10/15/23 14:24
ALT 18 U/L (0-35) 10/15/23 14:24
Alkaline Phosphatase 210 U/L (38-126) H 10/15/23 14:24
Data Reviewed
-
Diagnostic Radiology: Report Reviewed by me
Lab Data: Labs Reviewed by me
Impression/Plan
-
Ms. Gale Woods is a 73 yo woman with hx MRSA bacteremia, right knee infection, UTI, anemia of chronic disease, polymyalgia rheumatica, rheumatoid arthritis, hypothyroidism, GERD, history of GI bleed, chronic transaminitis, recent admission
10/01-10/08/23 for BARRY 2/2 dehydration; low BP with increase in [employer] midodrine presents to the ER with [facility] blood [facility] at [facility].
Triage VS: T 97.6, P 91, RR 20, BP 84/68, SpO2 98%
LABS: WBC 12.6, Hg 8.5, PLT 208, Na 137, K+ 4.0, CO2 21, Cr 1.7, lactate 2.1, T. Bili 1.4, AST 51, ALk phos 210, BNP 2019
UA with 21-25 WBC
MAR: 1L IVF, Vanc/Cefepime
Severe Sepsis (elevated Pulse, WBC)
Hypotension responsive to fluids
Chronic hypotension on Midodrine
-repeat blood cultures taken
-F/U flu, covid, chest x-ray
-give [employer] midodrine now
-will continue [employer] standing midrodrine
-continue Vanc/Cefepime for now
Hx MRSA Bacteremia
-patient was admitted 08/17-08/28/23 with MRSA UTI and bacteremia; SILVERIO without e/o endocarditis
RA/PMR
-prednisone no longer on home medication list - unclear when this was tapered based on past hospital notes?
-will obtain AM coritsol tomorrow
Anemia of chronic disease
-Hg stable
Transaminitis
-new elevation T. Bili, add on direct
Hx prosthetic joint infection
-hold [employer] Levaquin for secondary PPx while on vanc/cefepime
acute on chronic kidney disease stage III
-creatinine ranges 1.2-1.5
Hypothyroidism
-F/U TSH
GERD
-[employer] PPI
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
-continue bowel regimen
DVT PPx hep subQ
FULL CODE
[2023-10-15 17:00] LABS: Urine Yeast Moderate (Negative)
[2023-10-15] MEDS: ProAmatine 10 MG PO (17:43)
[2023-10-15] MEDS: NSS 500 IV (17:47)
[2023-10-15] MEDS: MAXIPIME 2000 MG IV (17:47)
[2023-10-15 17:54] LABS: Direct Bilirubin 0.7 mg/dl (0.0-0.4)
[2023-10-15 18:30] LABS: COVID-19 Antigen Negative (Negative)
[2023-10-15] MEDS: VANCOCIN 540 MG IV (18:40)
--- NOTE | 2023-10-15 19:50 | PTCARENOTE ---
Pt brought up by ED RN. PT AAOX3, pleasant affect. Vanco gtt hanging. Bp 101/81 HR 90. Assessment care and vitals as charted.
[2023-10-15] MEDS: LR 500 IV (19:59)
--- NOTE | 2023-10-15 20:11 | PHA.VAN.IN ---
Assessment
- Assessment
Renal Function: Appears elevated from baseline (0.8 - 1.0)
Concomitant Antimicrobials: cefepime
Historical Micro: History of MRSA infection (blood culture (+) 08/17/23)
Plan
- Plan
Initial / Loading Dose: vanc 2000mg administered in ED @ 1840
Maintenance Regimen: dosing by level
Monitoring: random level 10/16 0600
Pharmacokinetics Vancomycin I
- -
Patient Age: 73
Patient Sex: Female
Vancomycin Day #: 1
Indication: Bacteremia
Requesting Provider: Dr. Musa
Pertinent Antimicrobial Allergies:
ampicillin/sulbactam - AIN
Height / Weight:
Height 5 ft
Actual Weight 79.7 kg
- Vital Signs / Lab Results
Temp Pulse Resp BP Pulse Ox
97.6 F 92 19 86/52 99
10/15/23 14:12 10/15/23 18:15 10/15/23 18:15 10/15/23 18:35 10/15/23 17:15
Lab Results - Hematology
10/15/23
14:24
WBC 12.6 H
Lab Results - Chemistry
10/15/23
14:24
BUN 15
Creatinine 1.7 H
Estimated Creat Clear 28
Albumin 2.0 L
10/15/23
16:22
Lactic Acid 2.1 H
Lab Results - Urine
10/15/23
16:39
Urine Nitrite (Reflex) Negative
Leukocyte Esterase Rfl 2+ A
Urine WBC (Reflex) 21-25 A
Ur Squamous Epith Cells 0-2
Urine Bacteria (Reflex) Many A
Microbiology Results
10/15/23 17:49 Influenza Types A & B (MATTHEW) - Final
Nasal Swab Negative for Influenza A & B, NAAT
Negative results must be combined with clinical observations
and patient history.
Nucleic Acid Amplification test (NAAT)performed on the
[employer] platform.
--- NOTE | 2023-10-15 20:45 | VATNOTE ---
Patient's b/l arms are edematous with right arm appearing worse than the left. Right arm more swollen with discoloration. Limb alert placed on right arm. Primary RN at bedside during VAT routine rounds. Patient with left median cephalic 20G site
placed in ED. Patient has enough IV access at present time. Will continue to monitor IV needs.
[2023-10-15] MEDS: NEURONTIN 300 MG PO (21:24)
[2023-10-15] MEDS: DESENEX/MITRAZOL/ZEASORB 1 APPLIC TOPICAL (21:24)
[2023-10-15] MEDS: REMERON 7.5 MG PO (21:26)
[2023-10-16] VITALS (27 sets, daily range): BP systolic 80–150; BP diastolic 39–117; PULSE 87–92; O2SAT 97; BMI 33.1
[2023-10-16 04:11] LABS: % Basophils 0.2 % (0-2); % Eosinophils 8.9 % (0-6); % Immature Granulocytes 0.6 % (0-0.5); % Monocytes 6.9 % (1.7-9.3); % Neutrophils 70.4 % (42.2-75.2); Absolute Immature Granulocytes 0.1 10^3/uL (0-0.05); Absolute Lymphocytes 1.4 10^3/uL (1.2-3.4); Absolute Monocytes 0.8 10^3/uL (0.1-0.6); Absolute Neutrophils 7.6 10^3/uL (1.4-6.5); Hematocrit 21.1 % (37.0-47.0); Hemoglobin 7.2 g/dL (12.0-16.0); Mean Corp Hgb Conc. 34.1 g/dL (33.0-37.0); Mean Corpuscular Hgb 29.3 pg (27.0-31.0); Mean Corpuscular Volume 85.8 fL (81.0-99.0); Mean Platelet Volume 11.1 fL (7.4-10.4); Nucleated Red Blood Cells % 0 %; Platelet Count 161 10^3/uL (130-400); Red Blood Cell Count 2.46 10^6/uL (4.20-5.40); Red Cell Dist. Width 20.5 % (11.5-14.5); White Blood Cell Count 10.8 10^3/uL (4.8-10.8)
[2023-10-16 04:23] LABS: ALT (SGPT) 15 U/L (0-35); AST (SGOT) 39 U/L (14-36); Albumin 1.7 g/dl (3.5-5.0); Alkaline Phosphatase 167 U/L (38-126); Blood Urea Nitrogen 15 mg/dl (7-17); Calcium 7.3 mg/dl (8.4-10.2); Carbon Dioxide 21 mmol/L (22-30); Chloride 109 mmol/L (98-107); Estimated Creatinine Clearance 30 ml/min; Glucose 74 mg/dl (70-99); Magnesium 1.4 mg/dl (1.6-2.3); Potassium 3.2 mmol/L (3.5-5.1); Sodium 136 mmol/L (135-145); Total Bilirubin 1.1 mg/dl (0.2-1.3); Total Protein 3.9 g/dl (6.3-8.2); eGFR 34.27
[2023-10-16 04:36] LABS: Vancomycin Random 24.8 ug/ml
[2023-10-16 04:55] LABS: Cortisol, Random 9.5 ug/dl
[2023-10-16] MEDS: SYNTHROID 75 MCG PO (05:16)
--- NOTE | 2023-10-16 05:30 | PTCARENOTE ---
Pt had no urine output over night, per Pt she had a large amount in ED before coming to the floor. Pt bladder scanned for <70mls. No current urge to urinate.
[2023-10-16 05:36] LABS: TSH 9.24 uIU/ml (0.47-4.68)
--- NOTE | 2023-10-16 08:18 | PHA.VAN.FU ---
Vancomycin Assessment / Plan
- Assessment
Renal Function: Stable
WBC's are: Trending Down
In the past 24 hrs, patient has been: Afebrile
Concomitant Antimicrobials: CEFEPIME
- Assessment - Therapeutic Drug Monitoring
Random Level: 24.8
- Dosing Plan
Dosing by Level: Hold off on dosing today
- Monitoring Plan
Random Level: 10/17 IN AM
- Follow Up
Pharmacy will continue to follow.
Vancomycin Follow UP
- -
Patient Age: 73
Patient Sex: Female
Vancomycin Day #: 2
Indication: Bacteremia
Requesting Provider: Dr. Musa
Pertinent Antimicrobial Allergies:
ampicillin/sulbactam - AIN
Height / Weight:
Height 5 ft
Actual Weight 76.9 kg
- Vital Signs / Lab Results
Temp Pulse Resp BP Pulse Ox
97.3 F 93 17 102/53 96
10/16/23 07:19 10/16/23 06:00 10/16/23 06:00 10/16/23 06:00 10/16/23 06:00
Lab Results - Hematology
10/15/23 10/16/23
14:24 04:02
WBC 12.6 H 10.8
Lab Results - Chemistry
10/15/23 10/16/23
14:24 04:02
BUN 15 15
Creatinine 1.7 H 1.6 H
Estimated Creat Clear 28 30
Albumin 2.0 L 1.7 L
10/15/23
16:22
Lactic Acid 2.1 H
Lab Results - Urine
10/15/23
16:39
Urine Nitrite (Reflex) Negative
Leukocyte Esterase Rfl 2+ A
Ur Squamous Epith Cells 0-2
Microbiology Results
10/15/23 17:49 Influenza Types A & B (MATTHEW) - Final
Nasal Swab Negative for Influenza A & B, NAAT
Negative results must be combined with clinical observations
and patient history.
Nucleic Acid Amplification test (NAAT)performed on the
[employer] platform.
Therapeutic Drug Monitoring
Random Vancomycin 24.8 ug/ml 10/16/23 04:02
[2023-10-16] MEDS: KCL 20 MEQ PO ×2 (08:19→08:20)
[2023-10-16] MEDS: CYMBALTA DELAYED RELEASE 30 MG PO (08:20)
[2023-10-16] MEDS: COLACE 200 MG PO (08:20)
[2023-10-16] MEDS: ProAmatine 10 MG PO ×3 (08:20→17:10)
[2023-10-16] MEDS: PROTONIX 40 MG PO (08:20)
[2023-10-16] MEDS: NEURONTIN 300 MG PO ×2 (08:20→19:48)
[2023-10-16] MEDS: VITAMIN D3 (cholecalciferol) 125 MCG PO (08:20)
[2023-10-16] MEDS: DESENEX/MITRAZOL/ZEASORB 1 APPLIC TOPICAL ×2 (08:21→19:49)
[2023-10-16] MEDS: HEPARIN 5000 UNITS SC ×2 (08:21→19:49)
--- NOTE | 2023-10-16 08:24 | W.PN.HOSP.TC ---
Today's Communication/Plan
-
ACTH stim test
continue broad spectrum abx for now
F/U cultures
Assessment / Plan
Assessment / Plan
Ms. Gale Woods is a 73 yo woman with hx MRSA bacteremia, right knee infection, UTI, anemia of chronic disease, polymyalgia rheumatica, rheumatoid arthritis, hypothyroidism, GERD, history of GI bleed, chronic transaminitis, recent admission
10/01-10/08/23 for BARRY 2/2 dehydration; low BP with increase in [employer] midodrine presents to the ER with low blood pressure seen at [facility].
Triage VS: T 97.6, P 91, RR 20, BP 84/68, SpO2 98%
LABS: WBC 12.6, Hg 8.5, PLT 208, Na 137, K+ 4.0, CO2 21, Cr 1.7, lactate 2.1, T. Bili 1.4, AST 51, ALk phos 210, BNP 2020
UA with 21-25 WBC
MAR: 1L IVF, Vanc/Cefepime
Severe Sepsis (elevated Pulse, WBC)
Hypotension responsive to fluids
Chronic hypotension on Midodrine
-repeat blood cultures taken
-flu and covid negative
-continue [employer] midodriane
-continue Vanc/Cefepime for now while awaiting final cultures
-concern this may be adrenal insufficiency; AM cortisol 9.5 and unclear status of patient's prior prednisone dosing (poor historian)
-ACTH stim test now; discussed briefly with endocrinology
Hx MRSA Bacteremia
-patient was admitted 08/17-08/28/23 with MRSA UTI and bacteremia; SILVERIO without e/o endocarditis
RA/PMR
-prednisone no longer on home medication list - unclear when this was tapered based on past hospital notes?
-ACTH stim test as above
Anemia of chronic disease
-Hg stable
Transaminitis
-new elevation T. Bili, add on direct
Hx prosthetic joint infection
-hold [employer] Levaquin for secondary PPx while on vanc/cefepime
acute on chronic kidney disease stage III
-creatinine ranges 1.2-1.5
Hypothyroidism
-TSH elevated but in setting adrenal insufficiency - continue home synthroid dosing
GERD
-[employer] PPI
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
-continue bowel regimen
DVT PPx hep subQ
FULL CODE
Anticipated Discharge: 24 - 48 hours
Subjective/Interval History
-
Date of Service: October 16, 2023
no new complaints
she does not know what pills she takes at [facility]
no cough or shortness of breath
Objective Data
-
Labs:
Laboratory Results
10/16/23
04:02
WBC 10.8
Hgb 7.2 L
Hct 21.1 L
Plt Count 161 D
Sodium 136
Potassium 3.2 L
Chloride 109 H
Carbon Dioxide 21 L
BUN 15
Creatinine 1.6 H
Glucose 74
Calcium 7.3 L
Total Bilirubin 1.1
AST 39 H
ALT 15
Alkaline Phosphatase 167 H
Vital Signs:
Vital Signs
Temp Pulse Resp BP Pulse Ox
97.3 F 95 17 92/54 96
10/16/23 07:19 10/16/23 08:20 10/16/23 06:00 10/16/23 08:20 10/16/23 06:00
I&O
10/15/23 10/16/23 10/17/23
06:59 06:59 06:59
Intake Total 1280 / 1280
Output Total 0 / 0
Balance 1280 / 1280
Review of Systems
-
History Source: Patient
All other systems: Reviewed and negative
Physical Exam
-
General: No Apparent Distress
HEENT: Normocephalic, Atraumatic and Other (poor dentition )
Respiratory: Negative Wheezes
Cardiac: Regular Rhythm and S1/S2
Genito-urinary: No Costovertebral Tender
Musculoskeletal: Other (diffuse edema; frail skin with bruising )
Neuro: AO x 3
Psych: Calm
Data Reviewed
-
Diagnostic Radiology: Report Reviewed by me
Labs: Labs Reviewed by me
[2023-10-16 08:31] LABS: Lactic Acid 1.5 mmol/L (0.7-2.0)
[2023-10-16] MEDS: CORTROSYN 0.25 MG IV (10:17)
[2023-10-16] MEDS: NSS (PRESERVATIVE FREE) 1 ML IV (10:18)
[2023-10-16 10:21] LABS: ACTH Stim Cortisol 0 Min 14.8 ug/dl
--- NOTE | 2023-10-16 10:36 | PTCARENOTE ---
Patient AAOx3, poor historian. Extremity swelling with wheeping in some areas. Wound care performed, see documentation. VSS. Patient with no complaints except swelling. NSR with PVCs. Patient making needs known. Continuing to closely monitor patient.
[2023-10-16] MEDS: MAGNESIUM SULFATE 50 IV (11:08)
[2023-10-16 12:12] LABS: ACTH Stim Cortisol 30 Min 20.7 ug/dl
--- NOTE | 2023-10-16 12:40 | W.PN.UPDATE ---
Update Note
Progress Note Update
ACTH stim test without e/o significant adrenal insufficiency
discussed results with endocrinology
--- NOTE | 2023-10-16 13:05 | PTCARENOTE ---
Noticed in [facility] paperwork that DNR was listed. Spoke with patient about code status and she clarified that she is a FULL CODE.
[2023-10-16] MEDS: STERILE WATER FOR INJECTION 10 ML IV (17:13)
[2023-10-16] MEDS: MAXIPIME 2000 MG IV (17:13)
[2023-10-16] MEDS: REMERON 7.5 MG PO (21:17)
--- NOTE | 2023-10-16 23:18 | PTCARENOTE ---
Addendum entered by Carolina Saleh RN 10/17/23 04:43:
Pt R upper extremity continuing to weep. Red areas on right arm, breast and ABD folds appear to be spreading, will sharona area. Multiple attempt for Pt morning labs, due to excess edema, in contact with IV team and phlebotomy.
Original Note:
Assumed care of Pt from day RN. Pt AAOX3 with pleasant affect. Pt had no complaints at that time. Assessment care and vitals as charted.
[2023-10-17] VITALS (44 sets, daily range): BP systolic 62–119; BP diastolic 15–103; BMI 33.1
[2023-10-17 06:00] LABS: % Basophils 0.4 % (0-2); % Eosinophils 5.2 % (0-6); % Immature Granulocytes 0.7 % (0-0.5); % Lymphocytes 13.5 % (20.5-51.1); % Monocytes 6.4 % (1.7-9.3); % Neutrophils 73.8 % (42.2-75.2); Absolute Basophils 0.1 10^3/uL (0-0.2); Absolute Eosinophils 0.6 10^3/uL (0-0.7); Absolute Immature Granulocytes 0.1 10^3/uL (0-0.05); Absolute Lymphocytes 1.7 10^3/uL (1.2-3.4); Absolute Monocytes 0.8 10^3/uL (0.1-0.6); Mean Corpuscular Hgb 28.5 pg (27.0-31.0); Mean Corpuscular Volume 81.3 fL (81.0-99.0); Mean Platelet Volume 12.6 fL (7.4-10.4); Nucleated Red Blood Cells % 0 %; Platelet Count 165 10^3/uL (130-400); Red Blood Cell Count 2.46 10^6/uL (4.20-5.40); White Blood Cell Count 12.2 10^3/uL (4.8-10.8)
[2023-10-17 06:01] LABS: Blood Urea Nitrogen 17 mg/dl (7-17); Calcium 7.8 mg/dl (8.4-10.2); Carbon Dioxide 19 mmol/L (22-30); Chloride 111 mmol/L (98-107); Estimated Creatinine Clearance 30 ml/min; Glucose 81 mg/dl (70-99); Potassium 3.5 mmol/L (3.5-5.1); Sodium 136 mmol/L (135-145); eGFR 34.27
[2023-10-17 06:06] LABS: Vancomycin Random 21.9 ug/ml
[2023-10-17] MEDS: SYNTHROID 75 MCG PO (06:27)
[2023-10-17 07:04] LABS: Magnesium 1.9 mg/dl (1.6-2.3)
--- NOTE | 2023-10-17 07:26 | PTCARENOTE ---
Morning labs H&H 03/11, Night [employer] made aware orders placed for type and screen.
--- NOTE | 2023-10-17 07:45 | PHA.VAN.FU ---
Vancomycin Assessment / Plan
- Assessment
Renal Function: Stable
WBC's are: Trending Up
In the past 24 hrs, patient has been: Afebrile
Concomitant Antimicrobials: CEFEPIME
- Assessment - Therapeutic Drug Monitoring
Random Level: 21.9
- Dosing Plan
Dosing by Level: Hold off on dosing today
- Monitoring Plan
Random Level: 10/18 IN AM
- Follow Up
Pharmacy will continue to follow.
Vancomycin Follow UP
- -
Patient Age: 73
Patient Sex: Female
Vancomycin Day #: 3
Indication: Bacteremia
Requesting Provider: Dr. Musa
Pertinent Antimicrobial Allergies:
ampicillin/sulbactam - AIN
Height / Weight:
Height 5 ft
Actual Weight 76.9 kg
- Vital Signs / Lab Results
Temp Pulse Resp BP Pulse Ox
97.8 F 96 25 119/87 95
10/17/23 03:28 10/17/23 06:00 10/17/23 06:00 10/17/23 06:00 10/17/23 06:00
Lab Results - Hematology
10/15/23 10/16/23 10/17/23
14:24 04:02 05:16
WBC 12.6 H 10.8 12.2 H
Lab Results - Chemistry
10/15/23 10/16/23 10/17/23
14:24 04:02 05:16
BUN 15 15 17
Creatinine 1.7 H 1.6 H 1.6 H
Estimated Creat Clear 28 30 30
Albumin 2.0 L 1.7 L
10/15/23 10/16/23
16:22 08:07
Lactic Acid 2.1 H 1.5
Microbiology Results
10/15/23 16:39 Blood Culture - Preliminary
Blood/Venous No Growth in 24 hours- Final report to follow
10/15/23 16:22 Blood Culture - Preliminary
Blood/Venous No Growth in 24 hours- Final report to follow
10/15/23 16:39 Urine Culture - Final
Urine NO GROWTH
10/15/23 17:49 Influenza Types A & B (MATTHEW) - Final
Nasal Swab Negative for Influenza A & B, NAAT
Negative results must be combined with clinical observations
and patient history.
Nucleic Acid Amplification test (NAAT)performed on the
[employer] platform.
Therapeutic Drug Monitoring
Random Vancomycin 21.9 ug/ml 10/17/23 05:16
--- NOTE | 2023-10-17 07:51 | W.PN.HOSP.TC ---
Addendum entered and electronically signed by Elvia Musa MD 10/17/23 15:46:
with persistent low BP, event this AM and creatinine > normal will give another small bolus
patient extravascularly wet, intravascularly dry
Addendum entered and electronically signed by Elvia Musa MD 10/17/23 09:40:
patient with possible aspiration this AM; episode of vomiting and increased O2 sats
-start IV Flagyl
-CXR
Addendum entered and electronically signed by Elvia Musa MD 10/17/23 08:21:
patient with diffuse anasarca; low albumin
will obtain US to rule out DVT as high risk
will need midline access per IV team
Original Note:
Today's Communication/Plan
-
narrow abx
1 unit PRBC
Assessment / Plan
Assessment / Plan
Ms. Gale Woods is a 73 yo woman with hx MRSA bacteremia, right knee infection, UTI, anemia of chronic disease, polymyalgia rheumatica, rheumatoid arthritis, hypothyroidism, GERD, history of GI bleed, chronic transaminitis, recent admission
10/01-10/08/23 for BARRY 2/2 dehydration; low BP with increase in [employer]EL[employer] midodrine [facility]
Triage VS: T 97.6, P 91, RR 20, BP 84/68, SpO2 98%
LABS: WBC 12.6, Hg 8.5, PLT 208, Na 137, K+ 4.0, CO2 21, Cr 1.7, lactate 2.1, T. Bili 1.4, AST 51, ALk phos 210, BNP 2020
UA with 21-25 WBC
MAR: 1L IVF, Vanc/Cefepime
CXR
IMPRESSION:
Faint opacity in the region of the posterior caudal right upper lobe. Atelectasis versus subtle pneumonia.
Severe Sepsis (elevated Pulse, WBC)
Hypotension responsive to fluids
Chronic hypotension on Midodrine
Community Acquired pneumonia
-repeat blood cultures taken
-flu and covid negative; CXR with possible RUL pneumonia
-continue PELOTA MAKER midodriNE, BP better this AM
-lactic acidosis resolved
-narrow to Ceftriaxone/doxy given neg cultures thus far
-concern raised for adrenal insufficiency; but ACTH stim test negative (discussed results with Endocrinology)
Hx MRSA Bacteremia
-patient was admitted 08/17-08/28/23 with MRSA UTI and bacteremia; SILVERIO without e/o endocarditis
RA/PMR
-prednisone no longer on home medication list - unclear when this was tapered based on past hospital notes?
-ACTH stim test as above negative
Acute on chronic anemia
Anemia of chronic disease
-Hg down to 7 - transfuse 1 unit PRBC this AM; consent obtained
-no e/o active bleeding
-repeat iron studies
Transaminitis
-new elevation T. Bili, add on direct
Hx prosthetic joint infection
-resume PEL[employer]KER Levaquin for secondary PPx on 10/18 (given plan to narrow abx today)
acute on chronic kidney disease stage III
-creatinine ranges 1.2-1.5
Hypothyroidism
-TSH elevated but in setting acute illness - continue home synthroid dosing with close follow up
GERD
-PELOTA MAKER PPI
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
-continue bowel regimen
DVT PPx hep subQ
FULL CODE
Anticipated Discharge: 24 - 48 hours
Subjective/Interval History
-
Date of Service: October 17, 2023
Objective Data
-
Labs:
Laboratory Results
10/17/23
05:16
WBC 12.2 H
Hgb 7.0 L
Hct 20.0 L*
Plt Count 165
Sodium 136
Potassium 3.5
Chloride 111 H
Carbon Dioxide 19 L
BUN 17
Creatinine 1.6 H
Glucose 81
Calcium 7.8 L
Vital Signs:
Vital Signs
Temp Pulse Resp BP Pulse Ox
97.8 F 96 25 119/87 95
10/17/23 03:28 10/17/23 06:00 10/17/23 06:00 10/17/23 06:00 10/17/23 06:00
I&O
10/16/23 10/17/23 10/18/23
06:59 06:59 06:59
Intake Total 1280 / 1280 240 / 240
Output Total 0 / 0
Balance 1280 / 1280 240 / 240
[2023-10-17] MEDS: NEURONTIN 300 MG PO ×2 (08:41→20:27)
[2023-10-17] MEDS: CYMBALTA DELAYED RELEASE 30 MG PO (08:49)
[2023-10-17] MEDS: PROTONIX 40 MG PO (08:49)
[2023-10-17] MEDS: VITAMIN D3 (cholecalciferol) 125 MCG PO (08:49)
[2023-10-17] MEDS: KCL 20 MEQ PO (08:49)
[2023-10-17] MEDS: VIBRAMYCIN 100 MG PO ×2 (08:49→20:28)
[2023-10-17] MEDS: COLACE 200 MG PO (08:49)
[2023-10-17] MEDS: ProAmatine 10 MG PO ×3 (08:50→17:50)
[2023-10-17] MEDS: DESENEX/MITRAZOL/ZEASORB 1 APPLIC TOPICAL ×2 (08:50→21:02)
[2023-10-17] MEDS: HEPARIN 5000 UNITS SC (08:50)
[2023-10-17] MEDS: ZOFRAN 4 MG IV (09:25)
--- NOTE | 2023-10-17 09:52 | PTCARENOTE ---
Patient with nausea then vomiting of clear yellow, mucusy fluid. Pt reports it came on all of a sudden. She denies lightheadedness, dizziness, any pain. TT to and [place] ordered and administered, see MAR. During vomiting, patient became
tachycardic and SPO2 dropping to 86%. Pt verbalized that she may have inhaled some of the vomit. Portable CXR ordered by Dr Musa. 2L O2 applied with improvement of SPO2 to 99%. Pt's HR also settled back down to 90s following feeling better.
During this episode, US called for patient to go down. Unable to send patient at this time. Requested portable US if possible.
[2023-10-17 10:45] LABS: ALT (SGPT) 16 U/L (0-35); AST (SGOT) 37 U/L (14-36); Alkaline Phosphatase 176 U/L (38-126); Iron 116 ug/dl (37-170)
[2023-10-17 10:55] LABS: Percent Saturation 84 % (20-50); Total Iron Binding Capacity 138 ug/dl (265-497)
[2023-10-17] MEDS: FLAGYL 500 MG 100 IV ×2 (11:15→17:50)
--- NOTE | 2023-10-17 11:45 | PTCARENOTE ---
Patient feeling slightly better. Sent to US.
--- NOTE | 2023-10-17 12:20 | CM ---
CM spoke with patient's via phone. Patient's confirmed that patient's preference would be to return to [facility] after discharge. Patient was STR at [facility] with plan to return home. Patient will need new authorization on return.
CM sent referral to [facility] via [facility].
PLAN: SNF, [facility].
[2023-10-17] MEDS: TYLENOL 650 MG PO (14:04)
--- NOTE | 2023-10-17 14:12 | W.PN.UPDATE ---
Update Note
Progress Note Update
LE US
IMPRESSION:
On the right, no evidence of femoral-popliteal deep venous thrombosis. Limited visualization of the right calf veins, as described. The visualized proximal peroneal vein is patent. The remaining peroneal vein and posterior tibial vein are
nonvisualized.
On the left, there is nonocclusive thrombus in the popliteal vein and visualized proximal peroneal vein. There is otherwise limited visualization of the remainder of the peroneal vein and the entire posterior tibial vein.
Delay in blood transfusion 2/2 poor access
DVT found LLE
Will start IV heparin gtt (once transfusion initiated).
Will monitor Hg closely. stop heparin gtt if any signs of bleeding.
--- NOTE | 2023-10-17 14:20 | PTCARENOTE ---
US's resulted. TT to to make aware. DVT in LLE, Heparin gtt ordered. Still need to obtain cbc & ptt prior to starting gtt. Pt extremely hard stick and unable to obtain blood work. VAT team contacted and will put in PICC line, order placed
by . Per , if Hg > 7 we can start Heparin gtt as long as blood is being given; if Hg < 7 then yes we need to wait.
[2023-10-17 14:35] LABS: Adrenocorticotropic Hormone 4.4 pg/mL (7.2-63.3)
--- NOTE | 2023-10-17 15:47 | W.PN.UPDATE ---
Addendum entered and electronically signed by Elvia Musa MD 10/17/23 16:10:
I went back to patient's bedside and was very violeta with her regarding poor prognosis, balancing different organ systems. I discussed her low albumin, swelling, poor mobility, recurrent infections, need to start blood thinners when she is very
anemic and risk of bleeding.
She asked what her other options would be and I stated she would qualify for hospice. Code status brought up and she wants to remain full code for now and have further discussions with her .
updated on this discussion. He stated years ago they discussed not wanting aggressive interventions done but it wasn't written down.
Original Note:
Update Note
Progress Note Update
updated and explained patient's many chronic illnesses, poor mobility and poor prognosis moving forward. He states he has been thinking the same thing for a while. I advised he sit down with his to go over goals of care.
[2023-10-17] MEDS: NSS 500 IV (15:49)
[2023-10-17] MEDS: ROCEPHIN 1000 MG IV (17:50)
[2023-10-17 17:54] LABS: Mean Corp Hgb Conc. 33.7 g/dL (33.0-37.0); Mean Corpuscular Hgb 28.8 pg (27.0-31.0); Mean Corpuscular Volume 85.4 fL (81.0-99.0); Platelet Count 187 10^3/uL (130-400); Red Blood Cell Count 2.33 10^6/uL (4.20-5.40); White Blood Cell Count 21.1 10^3/uL (4.8-10.8)
[2023-10-17 17:58] LABS: Hematocrit 19.9 % (37.0-47.0); Hemoglobin 6.7 g/dL (12.0-16.0)
--- NOTE | 2023-10-17 18:16 | W.PN.UPDATE ---
Update Note
Progress Note Update
Addendum
D/W Dr Musa
HGB dropped to less than 7
Ordered one unit of blood
No active bleeding
Will stop heparin gtt for now, recheck HGB after transfusion
End
--- NOTE | 2023-10-17 18:16 | PTCARENOTE ---
PICC line placed and in good position, confirmed by CXR and verbalized by VAT team. Labs sent. CBC resulted hgb 6.7/hct 19.9. TT to and made aware. Pt's BP also now low, systolic in 70s. Spoke with on the phone. She advised to give
18:00 Midodrine and re-assess. If patient drops into the 60s systolically to call back for Levophed. She also verbalized for Heparin gtt to be held and for a repeat hgb to be drawn following blood. sent TT to miguelito salas MD for help with
orders and message that was sent to miguelito salas was also forwarded to me.
[2023-10-17 18:35] LABS: APTT 53.9 Sec (23.4-35.0)
--- NOTE | 2023-10-17 21:33 | PTCARENOTE ---
Assumed care of pt from day RN. 1 unit PRBC hung, report given bedside during 15 minute check. Blood successfully transfused with out issue ending at 2127.
[2023-10-17] MEDS: REMERON PO (23:00)
[2023-10-17] MEDS: LEVOPHED 250 IV (23:01)
--- NOTE | 2023-10-17 23:27 | PTCARENOTE ---
Pt hypotensive with increased drowsiness. Night Cyanide Furnace Operator made aware, Levophed ordered placed. See work list for titration.
[2023-10-17 23:56] LABS: Hemoglobin 8.8 g/dL (12.0-16.0)
[2023-10-18] VITALS (72 sets, daily range): BP systolic 54–125; BP diastolic 24–88; BMI 33.2
[2023-10-18 00:35] LABS: Hematocrit 25.9 % (37.0-47.0)
[2023-10-18] MEDS: FLAGYL 500 MG 100 IV ×2 (02:27→10:04)
[2023-10-18] MEDS: BENADRYL 25 MG PO (04:30)
[2023-10-18 04:31] LABS: Hematocrit 28.1 % (37.0-47.0); Hemoglobin 9.7 g/dL (12.0-16.0); Mean Corp Hgb Conc. 34.5 g/dL (33.0-37.0); Mean Corpuscular Hgb 29.8 pg (27.0-31.0); Mean Corpuscular Volume 86.5 fL (81.0-99.0); Mean Platelet Volume 11.4 fL (7.4-10.4); Platelet Count 189 10^3/uL (130-400); Red Blood Cell Count 3.25 10^6/uL (4.20-5.40); Red Cell Dist. Width 19.2 % (11.5-14.5); White Blood Cell Count 32.2 10^3/uL (4.8-10.8)
--- NOTE | 2023-10-18 04:42 | PTCARENOTE ---
This AM Pt had complaint of being ' itchy'. Upon assessment pt has blanchable rash that is on chest arms, part of trunk and on upper thigh. Night Table Worker made aware, Benadryl given.
[2023-10-18 04:47] LABS: Blood Urea Nitrogen 18 mg/dl (7-17); Calcium 7.9 mg/dl (8.4-10.2); Carbon Dioxide 19 mmol/L (22-30); Chloride 109 mmol/L (98-107); Estimated Creatinine Clearance 25 ml/min; Glucose 116 mg/dl (70-99); Potassium 3.6 mmol/L (3.5-5.1); Sodium 138 mmol/L (135-145); eGFR 27.88
[2023-10-18] MEDS: SYNTHROID 75 MCG PO (05:24)
[2023-10-18] MEDS: NEURONTIN 300 MG PO (09:00)
[2023-10-18] MEDS: VITAMIN D3 (cholecalciferol) 125 MCG PO (09:00)
[2023-10-18] MEDS: CYMBALTA DELAYED RELEASE 30 MG PO (09:00)
[2023-10-18] MEDS: ProAmatine 10 MG PO (09:00)
[2023-10-18] MEDS: VIBRAMYCIN 100 MG PO (09:00)
[2023-10-18] MEDS: KCL 20 MEQ PO (09:00)
[2023-10-18] MEDS: PROTONIX 40 MG PO (09:00)
[2023-10-18] MEDS: COLACE 200 MG PO (09:00)
[2023-10-18] MEDS: DESENEX/MITRAZOL/ZEASORB 1 APPLIC TOPICAL ×2 (09:01→20:42)
[2023-10-18] MEDS: LR 1000 IV ×2 (10:05→16:44)
[2023-10-18 10:10] LABS: Hematocrit 26.9 % (37.0-47.0); Hemoglobin 9.1 g/dL (12.0-16.0); Mean Corp Hgb Conc. 33.8 g/dL (33.0-37.0); Mean Corpuscular Hgb 28.9 pg (27.0-31.0); Mean Corpuscular Volume 85.4 fL (81.0-99.0); Mean Platelet Volume 11.3 fL (7.4-10.4); Platelet Count 187 10^3/uL (130-400); Red Blood Cell Count 3.15 10^6/uL (4.20-5.40); Red Cell Dist. Width 19.7 % (11.5-14.5); White Blood Cell Count 31.8 10^3/uL (4.8-10.8)
[2023-10-18 10:21] LABS: APTT 50.6 Sec (23.4-35.0)
--- NOTE | 2023-10-18 10:21 | CM ---
Patient from [facility] with sepsis, anemia, DVT LLE. Room air. PICC line. Receiving Levophed gtt, IV Abx, Heparin gtt. PT Eval; max assist 2, recommend skilled rehab. OT Eval; dependent, requires assist of 2, recommend skilled rehab.
Noting Dr Musa notes GOC discussion with patient/.
Spoke with Yuni, [facility]; provided update that MD notes poor prognosis and GOC discussion in progress. Yuni confirms that the patient was there for short term rehab. She spoke with the this morning and he decided not to hold the bed.
The shared that they were considering hospice and he will not be able to afford to pay privately for alf care. Yuni is able to accept the patient back for short term rehab only and would need to know the alf plan.
CM continuing to follow for d/c needs.
Plan follow up with patient & once GOC discussions are completed.
[2023-10-18] MEDS: HEPARIN 25000 UNITS/250 ML IV (10:49)
--- NOTE | 2023-10-18 11:02 | PTCARENOTE ---
Pt's BP and MAP stable, Levo weaned to 3mcg/min. LR bolus ordered and infusing. Heparin gtt also ordered and infusing.
Pt is aaox3 but drowsy, slow to answer questions at times. Pt had a small BM on bedpan. Pt has edema in all 4 extremities. Pt on RA, 97%. Q2T maintained. Pt with poor appetite, only wanting to drink occasional liquids. Assessment, care and VS as
charted.
Pt's at the bedside and requested that MD know he is here, TT to and made aware.
[2023-10-18] MEDS: ProAmatine PO ×3 (12:51→17:21)
[2023-10-18] MEDS: LEVOPHED 250 IV ×2 (12:54→21:49)
--- NOTE | 2023-10-18 14:35 | WOUNDNOTE ---
R ABDOMEN AND HIP
--- NOTE | 2023-10-18 14:36 | WOUNDNOTE ---
JOSE RN note: Patient admitted with hypotension, elevated lactic acid level.
See H&P for complete history.
PMH: R patellar ORIF 04/13/23, revision of R knee 05/11/23, HTN, DVT's, PMR, DM, CKD3, removal of hardware R ankle.
Wound Location and type/assessment: Patient known to service, last seen 10/07/23. Since then, wounds on buttocks, R knee and R Achilles have improved. New dark maroon sharona proximal to old lower Achilles PI. R knee dressing removed from few days ago,
no drainage. R arm with 3rd spacing and large amt of serous fluid leaking from mid arm. Gluteal cleft with redness/ MASD, B/L buttocks with healed stage 2 PI's, now flaky denuded skin. Patient is incontinent of stool nurse reports, foam gets soiled
so using barrier cream to area. Heels are intact. Red maroon falcon on R abdomen and R side of thigh. Scattered bruising on limbs. MASD under breast skin folds, weeping on R.
Appetite: Fair.
Pressure redistribution devices in place: Centrella max air bed. Patient needs assists with turning. Pillow under calves.
Plan: Foams applied to heels and R proximal Achilles. Fungal powder in use for MASD in skin folds, can add nonwoven gauze under R breast to absorb moisture. Will confirm orders with hospitalist. Updated nurse Deepa who assisted.
Care plan to be updated and will follow as needed.
Note to case management of equipment requested for discharge: Air mattress
--- NOTE | 2023-10-18 15:38 | W.PN.HOSP.TC ---
Addendum entered and electronically signed by Cooper Cho MD 10/20/23 18:05:
[id number]
Addendum entered and electronically signed by Cooper Cho MD 10/20/23 17:20:
Stage 2 sacrum pressure injury, POA
Hypokalemia, hypomagnesemia, hypocalcemia
Original Note:
Today's Communication/Plan
-
abx - broaden; hold levaquin
LR bolus x 2
ct a/p
free t4
f/u ua
Hep ggt - monitor CBC this evening; stop if any evidence of bleeding
Assessment / Plan
Assessment / Plan
Ms. Gale Woods is a 73 yo woman with hx MRSA bacteremia, right knee infection, UTI, anemia of chronic disease, polymyalgia rheumatica, rheumatoid arthritis, hypothyroidism, GERD, history of GI bleed, chronic transaminitis, recent admission
10/01-10/08/23 for BARRY 2/2 dehydration; low BP with increase in PRIVACY OFFICER midodrine presents to the ER with low blood pressure seen at longterm.
Triage VS: T 97.6, P 91, RR 20, BP 84/68, SpO2 98%
LABS: WBC 12.6, Hg 8.5, PLT 208, Na 137, K+ 4.0, CO2 21, Cr 1.7, lactate 2.1, T. Bili 1.4, AST 51, ALk phos 210, BNP 2020
UA with 21-25 WBC
MAR: 1L IVF, Vanc/Cefepime
CXR
IMPRESSION:
Faint opacity in the region of the posterior caudal right upper lobe. Atelectasis versus subtle pneumonia.
Septic shock
Chronic hypotension on Midodrine
Community Acquired pneumonia
leukocytosis
-repeat blood cultures taken�no growth to date
-flu and covid negative; CXR with possible RUL pneumonia
-switch to Zosyn
-continue PRIVACY OFFICER midodriNE, BP better this AM
-concern raised for adrenal insufficiency; but ACTH stim test negative (discussed results with Endocrinology)
�Wean pressors as tolerated, MAP goal greater than 65
� LR bolus today, monitor
-ID consulted
�add on free t4
-UA
-Higher WBC, having BMs, semi formed and not watery
-Dry CT A/P due to BARRY
Hx MRSA Bacteremia
-patient was admitted 08/17-08/28/23 with MRSA UTI and bacteremia; SILVERIO without e/o endocarditis
-Bld cultures NGTD
RA/PMR
-prednisone no longer on home medication list - unclear when this was tapered based on past hospital notes?
-ACTH stim test as above negative
#Anemia of chronic disease
-Hg down to 7 - transfuse 1 unit PRBC this AM; consent obtained
-no e/o active bleeding
-Ctm with heparin ggt
-most likely 09/24 to chronic disease active inflammation
Hx prosthetic joint infection
-hold PRIVACY OFFICER Levaquin for secondary PPx on 10/18 (given plan to narrow abx today)
-switch to zosyn
DVT
-hepain ggt - monitoring HgB
acute on chronic kidney disease stage III
-creatinine ranges 1.2-1.5
-f/u ua
-IVF
-Cont abx
Hypothyroidism
-TSH elevated but in setting acute illness - continue home synthroid dosing with close follow up
-F/u free t4
GERD
-PRIVACY OFFICER PPI
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
-continue bowel regimen
DVT PPx hep subQ
FULL CODE
Total time spent on today's encounter was 50 minutes which included time spent in counseling the patient/family regarding diagnosis and treatment plan as listed above, goals of care, and symptom management. Case was discussed with nursing staff,
specialists, and care coordinators/case management. All labs and imaging personally reviewed by me. Remainder the time spent in detailed review of previous records, lab data, imaging, and other medical provider documentation.
Anticipated Discharge: > 48 hours
Subjective/Interval History
-
Date of Service: October 18, 2023
Objective Data
-
Labs:
Laboratory Results
10/18/23 10/18/23 10/18/23
04:23 09:59 17:00
WBC 32.2 H 31.8 H
Hgb 9.7 L 9.1 L
Hct 28.1 L 26.9 L
Plt Count 189 187
APTT 50.6 H Pending
Sodium 138
Potassium 3.6
Chloride 109 H
Carbon Dioxide 19 L
BUN 18 H
Creatinine 1.9 H
Glucose 116 H
Calcium 7.9 L
Vital Signs:
Vital Signs
Temp Pulse Resp BP Pulse Ox
98 F 97 13 93/54 97
10/18/23 11:25 10/18/23 14:46 10/18/23 14:46 10/18/23 14:46 10/18/23 14:46
I&O
10/17/23 10/18/23 10/19/23
06:59 06:59 06:59
Intake Total 240 / 240 1060 / 1060
Balance 240 / 240 1060 / 1060
Review of Systems
-
Unable to obtain full review of systems at this time due to: Acuity
History Source: Patient
All other systems: Not reviewed unless documented
Physical Exam
-
General: No Apparent Distress
HEENT: Normocephalic, Atraumatic and Other (poor dentition )
Respiratory: Negative Wheezes
Cardiac: Regular Rhythm and S1/S2
Genito-urinary: No Costovertebral Tender
Musculoskeletal: Other (diffuse edema; frail skin with bruising )
Neuro: AO x 3
Psych: Calm
Data Reviewed
-
Diagnostic Radiology: Image personally visualized and interpreted and Report Reviewed by me
Labs: Labs Reviewed by me
[2023-10-18] MEDS: ZOSYN 50 IV (16:07)
--- NOTE | 2023-10-18 16:13 | CON.ID ---
Consultation
-
Date/Time Consultation Requested: 10/18/2023, 1540
Date/Time Consultation Performed: 10/18/2023, 1615
Requesting Provider: Dr. Cooper Cho
Performing Provider: Dr. Sophie Hebert
Reason for Consultation: PNA, leukocytosis
Chief Complaint / Past History
Chief Complaint
Low blood pressure
History of Present Illness
73 year old female with hx RA/PMR no longer on Humira and prednisone, CKD3, chronic hypotension on midodrine who presented from [facility] with hypotension on 10/15/23. She was recently hospitalized 10/01 to 10/08 with BARRY and hypotension. Pt was started on
cefepime for RUL PNA which was changed to ceftriaxone/doxy/metronidazole after episode of emesis with hypoxia. BP initially responded to IVF. HgB dropped to 6.7 s/p pRBC transfusion. Over the past 2 days, wbc increased to 32. BARRY worse. BP remains
low. Abx's broadened to Zosyn today. Today, she feels weak. Denies SOB/cough. Denies abd pain or diarrhea. No worsening right knee pain. No sinus congestion or runny nose.
Past History
Additional Past Medical History:
PMR
RA, off chronic prednisone, Humira
hypothyroidism
COPD
CKDIII
Chronic hypotension on midodrine
spinal stenosis
MRSA bacteremia x 2 sets 08/17/23; 08/20/23 SILVERIO no vegetation, s/p Vanco x 2 weeks.
History of right knee ORIF PJI with E. faecalis s/p hardware removal, s/p 6 weeks IV abx followed by 3 months of levofloxacin
Allergy History:
ampicillin [From Unasyn] Allergy (Verified 10/15/23 14:21)
AIN
quarles pepper Allergy (Verified 10/16/23 17:21)
Nausea / Vomiting
methotrexate Allergy (Verified 10/15/23 14:21)
no energy and lost weight
pepper (genus Capsicum) Allergy (Verified 10/15/23 14:21)
LIKE FOOD POISONING/VOMITS/DIARRHEA
sulbactam [From Unasyn] Allergy (Verified 10/15/23 14:21)
AIN
Medications Reviewed: Yes
Current Antibiotics:
Zosyn d1
cefepime (10/15 - 10/16)
Vanco x 1 (10/15)
Ceftriaxone/Doxy/metronidazole (10/17 -10/18)
Social History
Tobacco: Non-Smoker
Alcohol: None
Drug: None
Personal:
Family History
Family History: Not Pertinent
Review of Systems
Review of Systems
General: Change in Appetite; Negative Fever or Chills
HEENT: Negative Sinus Problems, Headache or Pharyngitis
Cardiovascular: Edema; Negative Chest Pain
Respiratory: Negative Dyspnea or Cough
Gasteroenterology: Negative Nausea
Genital / Urological: Negative Dysuria
Endocrine: Weakness
Musculoskeletal: Negative Arthralgias
All systems: All other systems were reviewed and were negative
Vital Signs
Temp Pulse Resp BP Pulse Ox
98 F 97 13 93/54 97
10/18/23 11:25 10/18/23 14:46 10/18/23 14:46 10/18/23 14:46 10/18/23 14:46
Physical Exam
Physical Exam
Constitutional: Acutely Ill and Obese
Eyes: No Conjunctival Hemorrhage and Sclera Anicteric
Cardiovascular: Regular Rate and S1/S2
Pulmonary: Clear
Gastrointestinal: Soft, Non Tender, Non Distended and Normal Bowel Sounds
Genito-Urinary: Negative CVA Tenderness
Extremities: Edema and Other (Anasarca)
Musculoskeletal: Negative Joint Swelling or Joint Effusion
Neurological: Awake; Negative Meningeal Signs
Lines: PICC (LUE intact)
Lab / Diagnostic Study Results
10/18/23 04:23
Abs Immat Gran (auto) 0.1 10^3/uL (0-0.05) H 10/17/23 05:16
Absolute Neuts (auto) 9.0 10^3/uL (1.4-6.5) H 10/17/23 05:16
Absolute Lymphs (auto) 1.7 10^3/uL (1.2-3.4) 10/17/23 05:16
Absolute Monos (auto) 0.8 10^3/uL (0.1-0.6) H 10/17/23 05:16
Absolute Basos (auto) 0.1 10^3/uL (0-0.2) 10/17/23 05:16
Immature Gran % 0.7 % (0-0.5) H 10/17/23 05:16
Neutrophils % 73.8 % (42.2-75.2) 10/17/23 05:16
Lymphocytes % 13.5 % (20.5-51.1) L 10/17/23 05:16
Monocytes % 6.4 % (1.7-9.3) 10/17/23 05:16
Eosinophils % 5.2 % (0-6) 10/17/23 05:16
Basophils % 0.4 % (0-2) 10/17/23 05:16
Lactic Acid 1.5 mmol/L (0.7-2.0) 10/16/23 08:07
Ur Squamous Epith Cells 0-2 /LPF (Few) 10/15/23 16:39
Microbiology Results
Micro:
10/15/23 16:39 Blood Culture - Preliminary
Blood/Venous No Growth in 48 hours- Final report to follow
10/15/23 16:22 Blood Culture - Preliminary
Blood/Venous No Growth in 48 hours- Final report to follow
10/15/23 16:39 Urine Culture - Final
Urine NO GROWTH
10/15/23 17:49 Influenza Types A & B (MATTHEW) - Final
Nasal Swab Negative for Influenza A & B, NAAT
Negative results must be combined with clinical observations
and patient history.
Nucleic Acid Amplification test (NAAT)performed on the
[employer] platform.
10/15/23 CXR: Faint opacity in the region of the posterior caudal right upper lobe. Atelectasis versus subtle pneumonia.
10/17/23 CXR: Small amount of subpleural airspace opacity in the anterior segment of the right upper lobe adjacent to the right minor fissure suspicious for mild pneumonia. A mild amount of subpleural atelectasis or scarring is an alternative
diagnostic possibility.
Assessment / Plan
# RUL PNA
- DC Zosyn (h/o AIN with Unasyn).
- Start IV Vancomycin (MRSA colonized)
- Start cefepime 2g IV q24
# Significant leukocytosis due to infection/PNA
- no diarrhea
-blood cx's neg
- Ucx neg
-Trend wbc
# Acute on CKDIII
- Renally adjusted abx.
# LLE DVT
#Anasarca
# hx right knee ORIF infection with E. faecalis s/p hardware removal 05/2024, s/p 6 weeks IV abx through 07/17/23 followed by 3 months of prophylactic levofloxacin as per Dr. Rico.
Has completed levofloxacin;no need to resume levofloxacin.
--- NOTE | 2023-10-18 16:30 | PTCARENOTE ---
Order for UA. Per , the [facility] for UA. Pt had output of only 80 mls of concentrated, dark yellow urine.
[2023-10-18 16:53] LABS: Urine Albumin Trace (Neg - Trace); Urine Bilirubin 1+ (Negative); Urine Character Clear (Clear); Urine Color Yellow; Urine Glucose Negative (Negative); Urine Ketone 1+ (Negative); Urine Leukocyte 2+ (Negative); Urine Nitrite Negative (Negative); Urine Occult Blood Negative (Negative); Urine Urobilinogen Negative (Neg - 1+)
[2023-10-18 17:00] LABS: Urine Red Blood Cell None Seen /HPF (0-2); Urine Squamous Cell >30 /LPF (Few); Urine White Cell >100 /HPF (0-5)
[2023-10-18 17:01] LABS: Urine Bacteria Moderate (Negative)
--- NOTE | 2023-10-18 17:36 | PHA.VAN.IN ---
Assessment
- Assessment
Renal Function: Appears elevated from baseline (0.8 - 1.0)
Concomitant Antimicrobials: cefepime
Historical Micro: History of MRSA infection (blood culture (+) 08/17/23)
Plan
- Plan
Initial / Loading Dose: vanc 1500mg pending administration
Maintenance Regimen: dosing by level
Monitoring: random level 10/19 06
Pharmacokinetics Vancomycin I
- -
Patient Age: 73
Patient Sex: Female
Vancomycin Day #: 1
Indication: Pulmonary/Respiratory
Requesting Provider: Dr. Musa
Pertinent Antimicrobial Allergies:
ampicillin/sulbactam - AIN
Height / Weight:
Height 5 ft
Actual Weight 77.1 kg
- Vital Signs / Lab Results
Temp Pulse Resp BP Pulse Ox
98 F 110 24 101/65 95
10/18/23 15:55 10/18/23 17:21 10/18/23 16:48 10/18/23 17:21 10/18/23 16:30
Lab Results - Hematology
10/16/23 10/17/23 10/17/23
04:02 05:16 17:47
WBC 10.8 12.2 H 21.1 H
10/18/23 10/18/23
04:23 09:59
WBC 32.2 H 31.8 H
Lab Results - Chemistry
10/16/23 10/17/23 10/18/23
04:02 05:16 04:23
BUN 15 17 18 H
Creatinine 1.6 H 1.6 H 1.9 H
Estimated Creat Clear 30 30 25
Albumin 1.7 L
10/16/23
08:07
Lactic Acid 1.5
Lab Results - Urine
10/18/23
16:44
Urine Nitrite (Reflex) Negative
Leukocyte Esterase Rfl 2+ A
Urine WBC (Reflex) >100 A
Ur Squamous Epith Cells >30
Urine Bacteria (Reflex) Moderate A
Microbiology Results
10/15/23 16:39 Blood Culture - Preliminary
Blood/Venous No Growth in 72 hours- Final report to follow
10/15/23 16:22 Blood Culture - Preliminary
Blood/Venous No Growth in 72 hours- Final report to follow
[2023-10-18 17:43] LABS: Hematocrit 23.9 % (37.0-47.0); Hemoglobin 8.3 g/dL (12.0-16.0); Mean Corp Hgb Conc. 34.7 g/dL (33.0-37.0); Mean Corpuscular Hgb 29.5 pg (27.0-31.0); Mean Corpuscular Volume 85.1 fL (81.0-99.0); Mean Platelet Volume 11.1 fL (7.4-10.4); Platelet Count 156 10^3/uL (130-400); Red Blood Cell Count 2.81 10^6/uL (4.20-5.40); Red Cell Dist. Width 19.4 % (11.5-14.5); White Blood Cell Count 29.8 10^3/uL (4.8-10.8)
[2023-10-18 18:19] LABS: APTT > 200 Sec (23.4-35.0)
[2023-10-18] MEDS: VANCOCIN 300 ML IV (18:27)
[2023-10-18] MEDS: VANCOCIN 300 MG IV (18:27)
--- NOTE | 2023-10-18 18:30 | PTCARENOTE ---
Heparin gtt HELD per protocol for ptt >200. made aware per order. No new orders at this time.
--- NOTE | 2023-10-18 19:33 | W.PN.UPDATE ---
Addendum entered and electronically signed by GERMAN Barksdale 10/18/23 20:04:
Call to patients to update on transfer to ICU, he verbalized understanding. He requesting hospice team come tomorrow to give him more details as he feels 'she is moving that way faster than I would like.' Hospice consult order placed and
team notified. Informed , Fermin that anytime a provider in house can speak and make adjustments to change patients treatment plan to be more comfort focused. He was appreciative of information.
Original Note:
Update Note
Progress Note Update
Nursing contacted house provider that patients blood pressure currently 62/47 (53) and maxed on Levophed in IMU at 8 units. Reviewed with diesel locomotive engineer, Dr. Morataya, in agreement to transfer patient to ICU for closer monitoring and pressor support.
Transfer order entered. Update sent to ICU JOB CAPTAIN.
--- NOTE | 2023-10-18 20:11 | PTCARENOTE ---
Received change of shift report and patients systolic BP noted to be in the 60s- Levo titrated to 8mcg/min and still with systolics in the 60s-70s. at home independent call center agent provider made aware and placed order for patient to be transferred to ICU.
--- NOTE | 2023-10-18 20:33 | W.PN.UPDATE ---
Update Note
Progress Note Update
Discussed with spouse, (Fermin Henry) declining clinical conditional and how aggressive he wants to be with treatment. He stated that he wanted her to be a DNR and they already discussed this prior but never got it into writing. Plan to continue
with pressors for hemodynamic support, code status change to DNR, and hospice consult for AM.
[2023-10-18] MEDS: NEURONTIN PO (20:42)
[2023-10-18] MEDS: MAXIPIME 2000 MG IV (20:44)
[2023-10-18] MEDS: STERILE WATER FOR INJECTION 10 ML IV (20:44)
[2023-10-18] MEDS: PITRESSIN 100 IV (21:00)
--- NOTE | 2023-10-18 21:00 | PTCARENOTE ---
Received pt as transfer from IMU. Pt hypotensive with SBP in the 50's/60's. Pt drowsy, lethargic, arousable to voice/ tactile stimulation. Pt able to follow simple commands. AAOx1, forgetful to place and time. pt moans and yells when providing care
and repositioning. Pt not awake/ alert enough to take PO at this time. ST on the monitor HR 115-120's. POX 98% on 2 LO2 NC. Lungs dec with scattered crackles. MCKEON. Hypo bowel, round obese abd. Pt bladder scanned for 39ml. Pure wick in place. Perla
care provided, MASD noted. Desenex powder applied per MD order. Weak peripheral pulses present. +3 pitting Generalized anasarca, RUE weeping. B/L UE ecchymosis noted. RLE barlow discoloration. Stage 2 noted on sacrum, foam dressing applied. B/L heel
foams for protection. heels elevated on pillows. Pt turned on side. Arms elevated on pillows. Left dual picc in place infusing Levophed to keep MAP >65. heparin gtt restarted per protocol at 1100units/hr. Vasopressin infusing @ 0.03units/hr.
updated at bedside, Code status updated per Lissa PORTER. Will continue to monitor.
[2023-10-18] MEDS: REMERON PO (21:18)
--- NOTE | 2023-10-18 21:30 | PTCARENOTE ---
Lab results reviewed with Lissa PORTER. Orders obtained. See OCT. Will monitor.
[2023-10-18 21:42] LABS: Lactic Acid 5.2 mmol/L (0.7-2.0)
[2023-10-18 21:49] LABS: Blood Urea Nitrogen 16 mg/dl (7-17); Calcium 6.7 mg/dl (8.4-10.2); Carbon Dioxide 14 mmol/L (22-30); Chloride 106 mmol/L (98-107); Estimated Creatinine Clearance 26 ml/min; Glucose 285 mg/dl (70-99); Magnesium 1.5 mg/dl (1.6-2.3); Potassium 3.4 mmol/L (3.5-5.1); Sodium 128 mmol/L (135-145); eGFR 29.75
[2023-10-18] MEDS: KCL 100 IV (22:22)
[2023-10-18] MEDS: CALCIUM CHLORIDE 10% SYRINGE 60 MG IV (22:26)
[2023-10-18] MEDS: SODIUM BICARBONATE 100 MEQ IV (22:40)
[2023-10-18] MEDS: MAGNESIUM SULFATE 50 IV (23:18)
[2023-10-19] VITALS (12 sets, daily range): BP systolic 41–106; BP diastolic 26–56
--- NOTE | 2023-10-19 | PTCARENOTE ---
Pt continues to remain hypotensive. Pressors titrated per MD order. Pt moaning and confused. Reality orientation provided. B/L UE with significant weeping. No urine output. Lissa PORTER at bedside to assess pt. Will continue to monitor closely.
[2023-10-19] MEDS: NEO-SYNEPHRINE 1% 260 MG IV (01:05)
[2023-10-19] MEDS: LEVOPHED 258 MG IV (01:14)
--- NOTE | 2023-10-19 01:50 | W.PN.UPDATE ---
Update Note
Progress Note Update
Procedure Note: Arterial Line�
� Left Wrist Arrow 20 (10/24)�
Diagnosis:��Sepsis shock = three pressors
IV Line Comments: Uneventful Procedure�
Tim's test completed pre-procedure: Yes�
A-Line Comments: Sterile technique as per standard protocol, Ultrasound guided insertion�
Functioning A-line in situ: Yes�
A-line Insertion Start Time:��0135
A-line in at:��0140
[2023-10-19 01:51] LABS: B.E. -17.4 mmol/L; Ionized Calcium 1.22 mMOL/L (1.15-1.33); O2 Saturation % 95.8 % (94-98); PCO2 40 mmHg (32-35); PO2 81 mmHg (83-108); Sodium 136 mMOL/L (136-145)
--- NOTE | 2023-10-19 01:52 | W.PN.UPDATE ---
Update Note
Progress Note Update
0140 Jailene placed because BP cuff unable to read intermittently. BP is 42/30 on jailene. Patient now on three pressors. notified of patient's continued decline and is coming to the hospital.
0200 ABG 7.//11.6. Spouse at bedside and decision made to make patient comfort care.
[2023-10-19 01:54] LABS: HCO3 11.6 mmol/L (21-28); pH 7.07 (7.35-7.45)
[2023-10-19] MEDS: SODIUM BICARBONATE 50 MEQ IV (02:03)
--- NOTE | 2023-10-19 02:07 | PTCARENOTE ---
Pt maxed on 3 pressors. Lissa PORTER at bedside to place Jailene. BP corelating with cuff BP. Bp continues to decline. at bedside. Lissa PORTER at bedside, Pt made comfort care. Pt minimally responsive, opens eyes to voice. Unable to
obtain POX reading at this time. HR 110-115. Comfort measures now in place per MD order. Will continue to monitor.
[2023-10-19] MEDS: MORPHINE SULFATE 2 MG IV (02:22)
--- NOTE | 2023-10-19 05:48 | PTCARENOTE ---
Comfort measures maintained. Pt unresponsive with Cruz-Cruz respirations. Pt looks comfortable with no signs of distress. HR in the 60's. remains at bedside. Will continue to monitor.
--- NOTE | 2023-10-19 06:05 | W.PN.DEATH ---
Pronouncement of
-
Called to see patient to pronounce.
No spontaneous heart tones or respirations noted.
Patient not responsive to verbal stimuli.
Patient is pronounced .
Time of : 06:03
Date of : 10/19/23
Cause of : Septic Shock
Family Notified: Yes
--- NOTE | 2023-10-19 08:41 | PN.CDI ---
CDI
- -
CDI:
Physician Documentation Request
Admit Date: 10/15/23 17:44
Dear Doctor Tammie,
Please review the following and provide your response in the progress notes.
Clinical Indicators:
- 10/18 Wound RN indicates Stage 2 sacrum pressure injury, POA
Physician documentation of the type and location of wounds is required for compliant documentation. Based on the above clinical findings and your assessment, please provide the following in your progress note:
1. Location of the ulcer/wound, including laterality.
2. Type (etiology) of ulcer/wound:
- Diabetic ulcer
- Arterial (ischemic) ulcer
- Traumatic wound
- Venous stasis ulcer
- Pressure (decubitus) ulcer
- Non-healing surgical wound
- Other
- Unable to determine
Use of terms such as suspected, likely, concern for, or probable (associated with a specific diagnosis that is being evaluated, monitored, or treated as if it exists) are acceptable and can be coded in the inpatient setting, when documented at the
time of discharge.
Thank you,
Gail Cheek RN
CDI Specialist
Please use your independent medical judgment in providing your response.
*Source: National Pressure Ulcer Advisory Panel (NPUAP)
--- NOTE | 2023-10-19 08:49 | PN.CDI ---
CDI
- -
CDI:
Physician Documentation Request
Admit Date: 10/15/23 17:44
Dear Doctor Tammie,
Please review the following and provide your response in the progress notes.
Clinical Indicators:
- Current admission labs as follows:
Laboratory Tests
10/15/23 10/16/23 10/17/23
14:24 04:02 05:16
Potassium 4.0 D 3.2 L 3.5
Laboratory Tests
10/16/23 10/17/23 10/18/23
04:02 05:16 21:15
Magnesium 1.4 L 1.9 1.5 L
Laboratory Tests
10/17/23 10/18/23 10/18/23
05:16 04:23 21:15
Calcium 7.8 L 7.9 L 6.7 L*
- 10/18 IV Potassium chloride given
- 10/16-10/18 IV Magnesium sulfate given
- 10/18 IV Calcium chloride given
Please provide a diagnosis for the above lab values that were monitored and treatment rendered:
Hypokalemia, hypomagnesemia, hypocalcemia
Clinically insignificant abnormal lab value
Other
Use of terms such as suspected, likely, concern for, or probable (associated with a specific diagnosis that is being evaluated, monitored, or treated as if it exists) are acceptable and can be coded in the inpatient setting, when documented at the
time of discharge.
Thank you,
Gail Cheek RN
CDI Specialist
Please use your independent medical judgment in providing your response.
== END 2023-10-19 06:43 | disposition expired | DRG 871 ==
LOC: ICU 17:44
PROVIDERS: Nurse Practitioner Primary Care; Physician Assistant; ADMITTING PHYSICIAN Student in an Organized Health Care Education/Training Program; ATTENDING PHYSICIAN Internal Medicine; CONSULT PHYSICIAN Internal Medicine Infectious Disease; EMERGENCY PHYSICIAN Emergency Medicine; FAMILY PHYSICIAN Family Medicine
PROC: 30233N1 Transfusion of Nonautologous Red Blood Cells into Peripheral Vein, Percutaneous Approach (ICD-10-PCS; 2023-10-17)
DX: A41.02 Sepsis due to Methicillin resistant Staphylococcus aureus (principal); J18.9 Pneumonia, unspecified organism; R65.21 Severe sepsis with septic shock; I13.0 Hypertensive heart and chronic kidney disease with heart failure and stage 1 through stage 4 chronic kidney disease, or unspecified chronic kidney disease; J44.0 Chronic obstructive pulmonary disease with (acute) lower respiratory infection; I82.532 Chronic embolism and thrombosis of left popliteal vein; I95.89 Other hypotension; M06.9 Rheumatoid arthritis, unspecified; D63.8 Anemia in other chronic diseases classified elsewhere; E11.22 Type 2 diabetes mellitus with diabetic chronic kidney disease; N18.30 Chronic kidney disease, stage 3 unspecified; E03.9 Hypothyroidism, unspecified; K21.9 Gastro-esophageal reflux disease without esophagitis; I50.9 Heart failure, unspecified; L89.152 Pressure ulcer of sacral region, stage 2; E87.6 Hypokalemia; E83.42 Hypomagnesemia; E83.51 Hypocalcemia
CPT/HCPCS: 71045; 71046; 80048; 80053; 80202; 81003; 81015; 82024; 82247; 82248; 82330; 82533; 82728; 82805; 83540; 83550; 83605; 83735; 83880; 84075; 84132; 84302; 84439; 84443; 84450; 84460; 85014; 85018; 85025; 85027; 85730; 86850; 86900; 86901; 86920; 87040; 87086; 87502; 87811; 93970; 96361; 96374; 96375; 97162; 97167; 99285; P9016